=== PATIENT | male | born 1965 | race Caucasian/White ===

== ENCOUNTER 2024-10-24 12:16 | Inpatient (IN) | payer MEDICAID ==
[~2024-10-24] VITALS: Ht 175.3 cm; Wt 121.2 kg
--- NOTE | 2024-10-24 13:03 | ED.PDOC ---
History of Present Illness HPI Comments 59 y/o M presents with c/o open wound to his medial-arch area of his left-foot, today. Patient reports on coming to the ED after contact and consulting with his orthopedist, Dr. Preciado, regarding wound worsening, earlier, today. He comments on initial onset of symptoms on 09/20/24 after noticing a "scab" with "pus" emanating from area, while taking a shower. Patient then reports on being seen and cleared for close monitoring by his orthopedist the next day after "the skin peeled off" when he attempted to pick at it. Patient reports no fever, chills, nausea, vomiting, or other associated symptoms or modifiers at this time. Chief Complaint: Lower Extremity Time Seen by MD: 12:30 Reviewed Notes: Nurses Notes, Medications, Allergies Information Source: Patient Mode of Arrival: Ambulatory Severity: Moderate Timing: Days Duration: Since onset Prehospital treatment: None Past Medical History PAST MEDICAL HISTORY: Anxiety, Asthma, Depression, DM (type II w/neuropathy), HTN Surgical History: Tonsillectomy Surgical History (Other): catether ablation for afflutter on 08/19/24 Family History Family History: Unknown Social History Smoker: Non-Smoker Alcohol: Denies ETOH Use Drugs: Denies Drug Use Lives In: Home Constitutional: denies: chills, diaphoresis, fatigue, fever, malaise, sweats, weakness, others EENTM: denies: blurred vision, double vision, ear bleeding, ear discharge, ear drainage, ear pain, ear ringing, eye pain, eye redness, hearing loss, mouth pain, mouth swelling, nasal discharge, nose bleeding, nose congestion, nose pain, photophobia, tearing, throat pain, throat swelling, voice changes, others Respiratory: denies: cough, hemoptysis, orthopnea, SOB at rest, shortness of breath, SOB with excertion, stridor, wheezing, others Cardiovascular: denies: chest pain, dizzy spells, diaphoresis, Dyspnea on exertion, edema, irregular heart beat, left arm pain, lightheadedness, palpitations, PND, syncope, others Gastrointestinal: denies: abdomen distended, abdominal pain, blood streaked bowels, constipated, diarrhea, dysphagia, difficulty swallowing, hematemesis, melena, nausea, poor appetite, poor fluid intake, rectal bleeding, rectal pain, vomiting, others Genitourinary: denies: burning, dysuria, flank pain, frequency, hematuria, incontinence, penile discharge, penile sore, pain, testicle pain, testicle swelling, urgency, others Neurological: denies: dizziness, fainting, headache, left sided numbness, left sided weakness, numbness, paresthesia, pre-existing deficit, right sided numbness, right sided weakness, seizure, speech problems, tingling, tremors, weakness, others Musculoskeletal: denies: back pain, gout, joint pain, joint swelling, muscle pain, muscle stiffness, neck pain, others Integumetry: reports: wounds (left-foot); denies: bruises, change in color, change in hair/nails, dryness, laceration, lesions, lumps, rash, others Allergic/Immunocompromised: denies: Difficulty Healing, Frequent Infections, Hives, Itching, others Hematologic/Lymphatic: denies: anemia, blood clots, easy bleeding, easy bruising, swollen glands, others Endocrine: denies: excessive hunger, excessive sweating, excessive thirst, excessive urination, flushing, intolerance to cold, intolerance to heat, unexplained weight gain, unexplained weight loss, others Psychiatric: denies: anxiety, bipolar disorder, depression, hopeless, panic disorder, schizophrenia, sleepless, suicidal, others All Other Systems: Reviewed and Negative (negative unless otherwise stated above or in HPI) Physical Exam General Appearance: Moderate Distress, Normal HEENT: Normal ENT Inspection, Pharynx Normal, TMs Normal Neck: Full Range of Motion, Non-Tender, Normal, Normal Inspection Respiratory: Chest Non-Tender, Lungs Clear, No Accessory Muscle Use, No Respiratory Distress, Normal Breath Sounds Cardiovascular: No Edema, No JVD, No Murmur, No Gallop, Normal Peripheral Pulses, Regular Rate/Rhythm Breast Exam: Deferred Gastrointestinal: No Organomegaly, Non Tender, No Pulsatile Mass, Normal Bowel Sounds, Soft Genitalia: Deferred Pelvic: Deferred Rectal: Deferred Extremities: No calf tenderness, Normal capillary refill, No pedal edema Musculoskeletal : Location: Left Extremity Location: Foot Apperance: Limited ROM, Tenderness: Moderate, Other (Obvious wounds with drainage to the foot) Neurologic: Alert, stone cutter II-XII nml as Tested, No Motor Deficits, Normal Affect, Normal Mood, No Sensory Deficits Cerebellar Function: Normal Reflexes: Normal Skin: Dry, Normal Color, Warm Lymphatic: No Adenopathy Was a procedure done? Was a procedure done?: No Differential Dx Considerations may include: diabetic wound, unhealing wound, cellulitis, dermatitis, osteomyelitis X-Ray, Labs, Meds, VS Vital Signs Date Time Temp Pulse Resp B/P (MAP) Pulse Ox O2 Delivery O2 Flow Rate FiO2 10/24/24 13:19 99.8 99 19 159/89 (112) 95 99.8 10/24/24 13:19 99 16 95 Room Air* 0 21 10/24/24 12:40 97.6 113 18 120/66 (84) 95 Lab Test 10/24/24 13:25 10/24/24 12:27 Range/Units White Blood Count 20.9 H 4.4-10.8 10^3/uL Red Blood Count 3.91 L 4.5-5.90 10^6/uL Hemoglobin 12.8 L 13.5-17.5 g/dL Hematocrit 38.0 L 41.0-53.0 % Mean Corpuscular Volume 97.2 80.0-100.0 fL Mean Corpuscular Hemoglobin 32.8 H 28.0-32.0 pg Mean Corpuscular Hemoglobin Concent 33.8 32.0-36.0 g/dL Red Cell Distribution Width 13.4 11.8-14.3 % Platelet Count 39 L 140-450 10^3/uL Mean Platelet Volume 9.9 6.9-10.8 fL Neutrophils (%) (Auto) 37.0-80.0 % Lymphocytes (%) (Auto) 10.0-50.0 % Monocytes (%) (Auto) 0.0-12.0 % Basophils (%) (Auto) 0.0-2.0 % Neutrophils # (Auto) 1.6-8.6 10 ^3/uL Lymphocytes # (Auto) 0.4-5.4 10 ^3/uL Monocytes # (Auto) 0-1.3 10 ^3/uL Differential Total Cells Counted 100.0 100 Neutrophils % (Manual) 78 37.0-80.0 Band Neutrophils % (Manual) 12 Lymphocytes % (Manual) 9 L 10.0-50.0 Monocytes % (Manual) 0 0-12 Eosinophils % (Manual) 1 0-7 Basophils % (Manual) 0 0.0-2.0 Metamyelocytes % (manual) 0 Myelocytes % (Manual) 0 Promyelocytes % (Manual) 0 Blast Cells % (Manual) 0 Reactive Lymphocytes 0 Platelet Estimate Decreased Erythrocyte Sedimentation Rate 90 H 0-20 mm/hr Prothrombin Time 11.2 9.3-11.8 sec Prothrombin Time INR 1.06 0.9-1.15 Activated Partial Thromboplast Time 29.9 24.5-34.5 SEC Sodium Level 128 L 136-145 mmol/L Potassium Level 4.2 3.5-5.1 mmol/L Chloride Level 96 L 98-107 mmol/L Carbon Dioxide Level 21 20-31 mmol/L Anion Gap 11 5-15 Blood Urea Nitrogen 16 9-23 mg/dL Creatinine 1.03 0.700-1.30 mg/dL Glomerular Filtration Rate Calc 83 >90 mL/min BUN/Creatinine Ratio 15.5 10.0-20.0 Serum Glucose 257 H 74-106 mg/dL Calcium Level 9.0 8.7-10.4 mg/dL POC Glucose 262 H 70-106 mg/dl Current Medications Medications (Trade) Dose Ordered Sig/Karina Route Start Time Stop Time Status Last Admin Sodium Chloride 500 ml @ 500 mls/hr Q1H ONCE IV 10/24/24 12:45 10/24/24 13:44 DC 10/24/24 13:16 ORDERING PHYSICIAN: JAMMIE DUENAS MD PROCEDURE(s): LFTCT - CT L FOOT WO CONTRAST Findings/Impression: Limited evaluation given noncontrast technique. There is no evidence of an acute fracture, dislocation, osseous erosions, blastic, or lytic lesions. No radiopaque foreign bodies. Mild to moderate diffuse soft tissue edema. Soft tissue ulcer along the medial hindfoot. No subcutaneous emphysema or focal fluid collections. There is a concern for osteomyelitis. The patient was being started on vancomycin IV piggyback. The CBC shows an elevated white blood cell count of 20.9 The rest of the CBC is within normal limits The chemistry panel shows hyponatremia at 1:28 a.m. The patient was being admitted to the hospitalist The securities dealer will be consulted The patient was being admitted at this time. Images Reviewed?: Images reviewed and evaluated by me Time of 1ST Reevaluation: 13:00 Reevaluation 1ST: Unchanged Patient Education/Counseling: Diagnosis, Treatment, Prognosis Family Education/Counseling: No Family Present Departure 1 Departure Time of Disposition: 15:57 Impression: Primary Impression: Cellulitis of left foot Disposition: ADMITTED INPATIENT Admit to: Med Surg Condition: Fair Critical Care Note Critical Care Time?: No Stability Stability form required: Yes Unstable for transfer: ED Physician Assesment (Clinical assesment) Heart Score Heart Score: Heart Score Response (Comments) Value History N/A 0 EKG N/A 0 Age N/A 0 Risk Factors N/A 0 Troponin N/A 0 Total 0 I personally scribed for JAMMIE DUENAS MD ([email or web address]) on 10/24/24 at 13:03. Electronically submitted by José Luis Soto ([email or web address]). I personally scribed for JAMMIE DUENAS MD ([email or web address]) on 10/24/24 at 14:15. Electronically submitted by José Luis Soto ([email or web address]). JAMMIE DUENAS MD Oct 24, 2024 13:03
[2024-10-24] MEDS: SODIUM CHLORIDE 0.9% 500 ML IV ONE (13:16)
[2024-10-24 13:19] VITALS: PULSE 99; RESP 16; O2SAT 95
--- NOTE | 2024-10-24 13:51 | DVH ---
EXAM: CT CT L FOOT WO CONTRAST INDICATION: infection EXAM DATE: 10/24/2024 01:03 PM COMPARISON: None TECHNIQUE: Multiple axial CT images of the left foot were obtained using bone algorithm. Axial and co biju reformatting was done. Bone and soft tissue windows were reviewed. Radiation Dose Information: CT Dose: CTDI volume is 7.75 mGy. Dose-length product is 185.74 mGy*cm Findings/Impression: Limited evaluation given noncontrast technique. There is no evidence of an acute fracture, dislocation, osseous erosions, blastic, or lytic lesions. No radiopaque foreign bodies. Mild to moderate diffuse soft tissue edema. Soft tissue ulcer along the medial hindfoot. No subcutane ous emphysema or focal fluid collections.
[2024-10-24 14:08] LABS: Potassium 4.2 mmol/L (3.5-5.1)
[2024-10-24 14:09] LABS: Anion Gap 11 (5-15); Carbon Dioxide 21 mmol/L (20-31)
[2024-10-24 14:14] LABS: BUN/Creatinine Ratio 15.5 (10.0-20.0); Blood Urea Nitrogen 16 mg/dL (9-23)
[2024-10-24 14:15] LABS: Chloride 96 mmol/L (98-107); Glucose 257 mg/dL (74-106); Sodium 128 mmol/L (136-145)
[2024-10-24 14:17] LABS: INR 1.06 (0.9-1.15); Partial Thromboplastin Time 29.9 SEC (24.5-34.5); Prothrombin Time 11.2 sec (9.3-11.8)
[2024-10-24 14:21] LABS: Hemoglobin 12.8 g/dL (13.5-17.5); Mean Corpuscular Hemoglobin 32.8 pg (28.0-32.0); Mean Corpuscular Hgb Conc. 33.8 g/dL (32.0-36.0); Mean Corpuscular Volume 97.2 fL (80.0-100.0); Platelet Count (auto) 39 10^3/uL (140-450); Red Blood Cells 3.91 10^6/uL (4.5-5.90); Red Cell Distribution Width 13.4 % (11.8-14.3); White Blood Cell 20.9 10^3/uL (4.4-10.8)
[2024-10-24 14:26] LABS: Basophils % (manual) 0 (0.0-2.0); Blast Cells 0; Metamyelocytes % 0; Monocytes % (manual) 0 (0-12); Myelocytes % 0; Promyelocytes % 0; Reactive Lymphocytes 0
[2024-10-24 14:45] LABS: Erythrocyte Sedimentation Rate 90 mm/hr (0-20)
[2024-10-24 15:29] LABS: Band Neutrophils % (manual) 12; Eosinophils % (manual) 1 (0-7); Lymphocytes % (manual) 9 (10.0-50.0); Platelet Estimate Decreased
[2024-10-24] MEDS: VANCOMYCIN 1GM/250ML KIT 250 ML IV ONE (17:21)
[2024-10-24] MEDS ORDERED: VANCOMYCIN PER PHARMACY 0 MG IV SCH (22:15)
[2024-10-24] MEDS ORDERED: DEXTROSE (50%) 50ML SYRG IV PRN (22:30)
[2024-10-24] MEDS: INSULIN LANTUS (GLARGINE) 1 /0.01ml (100units/ml) SC SCH (22:41)
[2024-10-24] MEDS: VANCOMYCIN 1GM/250mL NS or D5W KIT IV ONE (22:50)
[2024-10-25] VITALS (11 sets, daily range): BP systolic 130–160; BP diastolic 58–79; PULSE 76–92; RESP 15–52; TEMP 97.6–100; O2SAT 95–100
--- NOTE | 2024-10-25 00:26 | DVH ---
CHEST RADIOGRAPH Indication: PREOP Technique: Single frontal view of the chest was obtained Comparison: None FINDINGS: Lines and Tubes: None There are no infiltrates or effusions. There is loss of volume in the right lung base due to the dome of the right hemidiaphragm by the liver. There does appear to be cardiomegaly. Cardiac consult omar sanders. . IMPRESSION: 1. Cardiomegaly 1.
[2024-10-25] MEDS: ACETAMINOPHEN 325 MG TAB PO PRN (02:01)
[2024-10-25] MEDS: SODIUM CHLORIDE 0.9% 1,000 ML IV SCH (02:02)
[2024-10-25] MEDS: PIPERACILLIN-TAZO 4.5GM 100 ML IV SCH ×2 (02:02→07:41)
--- NOTE | 2024-10-25 04:48 | DVHHPRES ---
History of Present Illness Resident Creating Document: STEVE POSADA RESIDENT Reason for Visit: diabetic foot History of Present Illness 59-year-old male presents with an open wound on the medial arch of his left foot. He reports that symptoms began on 09/20/24 when he noticed a scab with pus while taking a shower. The following day, he was evaluated and cleared for close monitoring by mixer attendant Dr Preciado. However, today, he reports worsening of the wound, prompting him to consult Dr. Preciado, who advised him to seek care in the ED. He denies fever, chills, nausea, vomiting, or other associated symptoms. Patient states that his hba1c was about 15 but he was not advised to start insulin Past Medical History Anxiety, asthma, depression, diabetes mellitus type II with neuropathy, hypertension Surgical History Tonsillectomy, catheter ablation for atrial flutter Medications Lisinopril 30 mg, Jardiance 10 mg, furosemide 40 mg, amlodipine 10 mg Social History Smoker: No, Alcohol: Denies use, Drugs: Denies use, Lives: At home Review of Systems Constitutional: No: Fever, Chills, Sweats, Weakness, Malaise, Other Eyes: No: Pain, Vision change, Conjunctivae inflammation, Eyelid inflammation, Other, Redness ENT: No: Ear pain, Ear discharge, Nose pain, Nose discharge, Nose congestion, Mouth pain, Mouth swelling, Throat pain, Throat swelling, Other Gastrointestinal: No: Nausea, Vomiting, Abdominal Pain, Diarrhea, Constipation, Melena, Hematochezia, Other Genitourinary: No Dysuria, No Frequency, No Incontinence, No Hematuria, No Retention, No Other Musculoskeletal: foot pain; No: other, neck pain, shoulder pain, arm pain, back pain, hand pain, leg pain Skin: No: Rash, Lesions, Jaundice, Bruising, Other Neurological: No: Weakness, Numbness, Incoordination, Change in speech, Confusion, Seizures, Other Allergies: Coded Allergies: NO KNOWN ALLERGIES (Unverified , 10/24/24) Medications Current Medications Medications Dose Ordered Sig/Karina Route Start Time Stop Time Status Last Admin Dose Admin Piperacillin Sod/ Tazobactam Sod 100 ml @ 200 mls/hr Q6HR IV 10/25/24 00:00 10/25/24 02:02 200 MLS/HR Vancomycin HCl 0 ml @ 0 mls/hr UD IV 10/24/24 22:15 UNV Insulin Glargine 30 units HS SC 10/24/24 22:15 10/24/24 22:41 30 UNITS Diagnostic Test (Pha) 1 strip ACHS 10/25/24 07:00 Insulin Human Regular HS SC 10/25/24 22:00 Insulin Human Regular AC SC 10/25/24 07:00 Dextrose 50 ml UD PRN IV 10/24/24 22:30 Sodium Chloride 1,000 ml @ 100 mls/hr Q10H IV 10/24/24 23:15 10/25/24 02:02 100 MLS/HR Acetaminophen 650 mg Q4HP PRN PO 10/25/24 01:45 10/25/24 02:01 650 MG Exam Vital Signs Vital Signs Date Time Temp Pulse Resp B/P (MAP) Pulse Ox O2 Delivery O2 Flow Rate FiO2 10/25/24 03:01 99.1 10/25/24 01:23 92 18 160/79 (106) 95 10/25/24 00:59 Room Air* 0 21 General Appearance: Alert, Oriented X3 HEENT: Atraumatic, PERRLA Respiratory: Clear to auscultation, Normal air movement Cardiovascular: Regular rate, Normal S1 Abdominal: Normal bowel sounds, Soft Extremities: No clubbing, No cyanosis, Other (necrosis ulcer in the sole of the foot ) Labs/Xrays Labs Test 10/24/24 23:15 10/24/24 22:35 10/24/24 13:25 Range/Units Lactic Acid Level 1.7 0.4-2.0 mmol/L POC Glucose 224 H 70-106 mg/dl White Blood Count 20.9 H 4.4-10.8 10^3/uL Red Blood Count 3.91 L 4.5-5.90 10^6/uL Hemoglobin 12.8 L 13.5-17.5 g/dL Hematocrit 38.0 L 41.0-53.0 % Mean Corpuscular Volume 97.2 80.0-100.0 fL Mean Corpuscular Hemoglobin 32.8 H 28.0-32.0 pg Mean Corpuscular Hemoglobin Concent 33.8 32.0-36.0 g/dL Red Cell Distribution Width 13.4 11.8-14.3 % Platelet Count 39 L 140-450 10^3/uL Mean Platelet Volume 9.9 6.9-10.8 fL Neutrophils (%) (Auto) 37.0-80.0 % Lymphocytes (%) (Auto) 10.0-50.0 % Monocytes (%) (Auto) 0.0-12.0 % Basophils (%) (Auto) 0.0-2.0 % Neutrophils # (Auto) 1.6-8.6 10 ^3/uL Lymphocytes # (Auto) 0.4-5.4 10 ^3/uL Monocytes # (Auto) 0-1.3 10 ^3/uL Differential Total Cells Counted 100.0 100 Neutrophils % (Manual) 78 37.0-80.0 Band Neutrophils % (Manual) 12 Lymphocytes % (Manual) 9 L 10.0-50.0 Monocytes % (Manual) 0 0-12 Eosinophils % (Manual) 1 0-7 Basophils % (Manual) 0 0.0-2.0 Metamyelocytes % (manual) 0 Myelocytes % (Manual) 0 Promyelocytes % (Manual) 0 Blast Cells % (Manual) 0 Reactive Lymphocytes 0 Platelet Estimate Decreased Erythrocyte Sedimentation Rate 90 H 0-20 mm/hr Prothrombin Time 11.2 9.3-11.8 sec Prothrombin Time INR 1.06 0.9-1.15 Activated Partial Thromboplast Time 29.9 24.5-34.5 SEC Sodium Level 128 L 136-145 mmol/L Potassium Level 4.2 3.5-5.1 mmol/L Chloride Level 96 L 98-107 mmol/L Carbon Dioxide Level 21 20-31 mmol/L Anion Gap 11 5-15 Blood Urea Nitrogen 16 9-23 mg/dL Creatinine 1.03 0.700-1.30 mg/dL Glomerular Filtration Rate Calc 83 >90 mL/min BUN/Creatinine Ratio 15.5 10.0-20.0 Serum Glucose 257 H 74-106 mg/dL Hemoglobin A1c 12.4 H <5.7 % A1C Calcium Level 9.0 8.7-10.4 mg/dL Assessment/Plan Assessment/Plan Imaging CT Left Foot (Non-Contrast): No evidence of acute fracture, dislocation, osseous erosions, radiopaque foreign bodies, mild to moderate diffuse soft tissue edema, soft tissue ulcer along the medial hindfoot, no subcutaneous emphysema, no focal fluid collections Assessment and Plan 59-year-old male with diabetes mellitus type II with neuropathy, hypertension, history of atrial flutter ablation, presenting with a worsening medial arch foot ulcer with leukocytosis, hyperglycemia, and soft tissue edema on imaging #Sepsis due to possible ostemyelitis #Diabetic foot #Uncontrolled diabetes #H/o atrial flutter - s/p ablation #Hypertension Admit Review Assistant consult Foot MRI to rule out osteo Zosyn + vanco IV NS 100cc/h Lantus 30 ui Moderate slidign scale Lisinopril 40 mg PO Case discussed with Dr Luna Plan discussed with: Patient, Other (rn) My Orders Orders - STEVE POSADA RESIDENT Procedure Category Date Status Time Admit ADMIT 10/24/24 Transmitted 22:03 Piperacillin-Tazo PHA 10/25/24 In Process 4.5gm (Zosyn 4.5gm/100 00:00 Vancomycin Per PHA 10/24/24 Pending Pharmacy 22:15 Consistent DIET 10/25/24 Transmitted Carb(Ccho)Diabetes Breakfast Npo After Midnight DIET 10/25/24 Transmitted Breakfast Mri L Foot Wo Contrast MRI 10/24/24 Logged 22:03 Insulin Lantus PHA 10/24/24 In Process (Glargine) (Lantus) 22:15 Glucose Blood PHA 10/25/24 In Process (Accu-Chek Comfort 07:00 Insulin R (Human) PHA 10/25/24 In Process (Insulin R) 22:00 Insulin R (Human) PHA 10/25/24 In Process (Insulin R) 07:00 Dextrose 50% Syringe PHA 10/24/24 In Process 22:30 Blood Culture VARSHA 10/24/24 In Process 22:21 Sodium Chloride 0.9% PHA 10/24/24 In Process 23:15 Electrocardigram EKG 10/24/24 Logged 23:09 Chest Xray 1 View XY 10/24/24 Resulted 23:09 Lt Low Ext Art Duplex US 10/25/24 Logged 01:02 * Wound Consult CONS 10/25/24 Transmitted Acetaminophen Tablet PHA 10/25/24 In Process (Tylenol Tablet) 01:45 Echo 2d Mode Cardiac US 10/25/24 Logged DOP 01:42 Complete Blood Count LAB 10/25/24 Logged 04:02 Comprehensive LAB 10/25/24 Logged Metabolic Panel 04:02 Date of Service: Oct 24, 2024 Billing Provider: LISSA LUNA MD Common Visit Codes: [id number] INP/OBS CARE (HIGH) STEVE POSADA RESIDENT Oct 25, 2024 04:48 LISSA LUNA MD Oct 25, 2024 09:30
[2024-10-25] MEDS: InsuLIN REG 1unit/0.01ml Soln (100units/ml) SC SCH ×2 (06:42→22:58)
[2024-10-25] MEDS: LISINOPRIL 20 MG TAB PO SCH (06:46)
[2024-10-25] MEDS: ACCU-CHEK COMFORT CURVE STRIP VI SCH (06:47)
--- NOTE | 2024-10-25 08:51 | DVH ---
BILATERAL Lower Extremity Arterial Duplex Date: 10/25/2024 07:19 AM Clinical History: PAD arterial doppler left ext lower Comparison: None Technique: Duplex Doppler evaluation including color Doppler and spectral/pulsed waveform analysis of the lower extremity arteries was performed. Finding: LEFT: Peak systolic velocities are as follows: GUNNER'S MATE M 130 cm/s Deep femoral 64 cm/s SFA proximal 121 cm/s SFA mid-portion 161 cm/s SFA distal 138 cm/s Popliteal 133 cm/s Posterior tibial 160 cm/s Anterior tibial 145 cm/s Dorsalis pedis 193 cm/s The waveforms are monophasic in the left posterior tibial artery, dorsalis pedis artery, anterior tib ial artery. REFERENCE VALUES, [facility]) vascular Imaging Lab Criteria: Peak systolic velocity ranges (in cm/sec) are as follows: <150 cm/s - <20 % stenosis 150-200 cm/s - 20-49% stenosis 200-300 cm/s - 50-75% stenosis >300 cm/s -> 75% stenosis IMPRESSION: Approximately 20-49% stenosis of the left dorsalis pedis artery. Peripheral vascular disease in the left posterior tibial artery, left dorsalis pedis artery and anter ior tibial artery.
[2024-10-25 10:05] LABS: Alanine Aminotransferase 10 U/L (7-40); Alkaline Phosphatase 97 U/L (46-116); Anion Gap 7 (5-15); BUN/Creatinine Ratio 11.7 (10.0-20.0); Blood Urea Nitrogen 12 mg/dL (9-23); Calcium 8.8 mg/dL (8.7-10.4); Carbon Dioxide 27 mmol/L (20-31); Potassium 3.6 mmol/L (3.5-5.1)
[2024-10-25 10:06] LABS: Albumin 3.4 g/dL (3.2-4.8); Bilirubin, Total 0.4 mg/dL (0.2-1.0)
[2024-10-25 10:07] LABS: Total Protein 6.4 g/dL (5.7-8.2)
[2024-10-25 10:09] LABS: Eosinophils # (auto) 0.1 10 ^3/uL (0-0.8); Mean Corpuscular Volume 97.6 fL (80.0-100.0); Monocytes # (auto) 1.6 10 ^3/uL (0-1.3)
[2024-10-25 10:11] LABS: Basophils # (auto) 0.1 10 ^3/uL (0-0.2); Basophils % (auto) 0.3 % (0.0-2.0); Eosinophils % (auto) 0.7 % (0.0-7.0); Hematocrit 35.6 % (41.0-53.0); Mean Corpuscular Hemoglobin 32.9 pg (28.0-32.0); Mean Corpuscular Hgb Conc. 33.7 g/dL (32.0-36.0); Neutrophils # (auto) 14.2 10 ^3/uL (1.6-8.6); Red Blood Cells 3.64 10^6/uL (4.5-5.90); Red Cell Distribution Width 13.5 % (11.8-14.3)
[2024-10-25 10:33] LABS: Aspartate Aminotransferase 12 U/L (13-40); Chloride 98 mmol/L (98-107); Glucose 172 mg/dL (74-106); Sodium 132 mmol/L (136-145)
[2024-10-25] MEDS ORDERED: FURO40TA4 (10:42)
[2024-10-25] MEDS ORDERED: AMLO1TAB23 PO (10:42)
[2024-10-25] MEDS ORDERED: LISI30TA8 PO (10:42)
[2024-10-25] MEDS ORDERED: EMPA1TAB PO (10:42)
--- NOTE | 2024-10-25 10:43 | DVH ---
EXAM: MRI MRI L FOOT WO CONTRAST HISTORY: rule out osteo COMPARISON: CT CT L FOOT WO CONTRAST on DOS: 10/24/24 TECHNIQUE: Multiplanar, multisequence MRI of the left foot was performed. FINDINGS: Large soft tissue defect on the medial- plantar aspect of the hindfoot and midfoot involving the skin and subcutaneous tissues extending to the underlying plantar musculature with abnormal signal within the muscles reflecting reactive edema/ myositis. No drainable fluid collection noted. The visualize d osseous structures demonstrate normal cortical and bone marrow signal intensity without evidence of fracture, trabecular bony injury, or dislocation. Hallux sesamoid complex is intact. 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 Mild degenerative changes of tarsal joints noted. The Lisfranc ligament is intact. There is mild fluid distention of the flexor and peroneal tendon sheaths reflecting tenosynovitis wit h no evidence of tendinosis or tendon tear. The partially visualized plantar fascia is intact. There is no evidence of intermetatarsal bursitis or Mi's neuroma. IMPRESSION: 1. Large soft tissue defect on the medial -plantar aspect of hindfoot/midfoot with underlying myositi s but no drainable fluid collection or evidence of osteomyelitis at this time.
[2024-10-25 12:04] LABS: Platelet Count (auto) 190 10^3/uL (140-450)
[2024-10-25 12:05] LABS: Platelet Estimate Adequate
--- NOTE | 2024-10-25 13:00 | DVHINCON2 ---
Date Seen: Oct 25, 2024 Reason for Consultation Left foot wound History of Present Illness 59-year-old male presents with an open wound on the medial arch of his left foot. He reports that symptoms began on 09/20/24 when he noticed a scab with pus while taking a shower. The following day, he was evaluated and cleared for close monitoring by blasting coal miner Dr Rainey. However, today, he reports worsening of the wound, prompting him to consult Dr. Rainey, who advised him to seek care in the ED. He denies fever, chills, nausea, vomiting, or other associated symptoms. Patient states that his hba1c was about 15 but he was not advised to start insulin Past Medical History See H&P Past Surgical History See H&P Family History: Patient reports no known family medical history. Allergies: Coded Allergies: NO KNOWN ALLERGIES (Unverified , 10/24/24) Home Meds Reported Medications Amlodipine Besylate (Amlodipine Besylate) 10 Mg Tab, 1 TAB PO DAILY 10/25/24 Furosemide (Furosemide) 40 Mg Tab, 1 DAILY 10/25/24 Empagliflozin (Jardiance) 10 Mg Tab, 1 TAB PO DAILY 10/25/24 Lisinopril (Lisinopril) 30 Mg Tab, 1 TAB PO DAILY 10/25/24 Current Medications Current Medications Medications (Trade) Dose Ordered Sig/Karina Route PRN Reason Start Time Stop Time Status Last Admin Piperacillin Sod/ Tazobactam Sod 100 ml @ 200 mls/hr Q6HR IV 10/25/24 00:00 10/25/24 07:02 DC 10/25/24 06:45 Vancomycin HCl 0 ml @ 0 mls/hr UD IV 10/24/24 22:15 Insulin Glargine (Lantus) 30 units HS SC 10/24/24 22:15 10/24/24 22:41 Diagnostic Test (Pha) (Accu-Chek Comfort Curve T) 1 strip ACHS 10/25/24 07:00 10/25/24 11:23 Insulin Human Regular (InsuLIN R) HS SC 10/25/24 22:00 Insulin Human Regular (InsuLIN R) AC SC 10/25/24 07:00 10/25/24 06:42 Dextrose 50 ml UD PRN IV Blood Sugar LESS THAN 60 10/24/24 22:30 Sodium Chloride 1,000 ml @ 100 mls/hr Q10H IV 10/24/24 23:15 10/25/24 02:02 Acetaminophen (Tylenol Tablet) 650 mg Q4HP PRN PO MODERATE PAIN (4-6 PAIN SCALE) 10/25/24 01:45 10/25/24 02:01 Lisinopril (Zestril Tablet) 40 mg DAILY PO 10/25/24 05:00 10/25/24 06:46 Piperacillin Sod/ Tazobactam Sod 100 ml @ 25 mls/hr Q8H IV 10/25/24 08:00 10/25/24 07:41 Vancomycin HCl 250 ml @ 200 mls/hr Q8H IV 10/25/24 14:00 Vital Signs Vital Signs Date Time Temp Pulse Resp B/P (MAP) Pulse Ox O2 Delivery O2 Flow Rate FiO2 10/25/24 09:00 98.2 81 20 139/63 (88) 98 98.2 10/25/24 08:07 Room Air* 0 21 Physical Exam DERMATOLOGIC EXAM: - Skin is dry and cool to the touch dry bilaterally. - Nails 1-5 of the bilateral foot are thickened, discolored, dystrophic, and tender to palpate with subungual debris - Hair loss noted to bilateral feet - left medial foot purulent drainage with erythema and fransico necrosis of tissue VASCULAR EXAM: - DP and PT pulses are palpable bilaterally. - PHOTOCOPYING EQUIPMENT MECHANIC is brisk to all digits. - Feet are cool to touch compared to lower legs bilaterally. NEUROLOGIC EXAM: - Normal light touch sensation to the superficial peroneal, deep peroneal, sural, saphenous, and tibial nerve branches. - Protective sensation is diminished as tested with a 5.07 10g Dix-Florian bilaterally. MUSCULOSKELETAL EXAM: - No gross deformities - Muscle strength is 5/5 and active motion is pain-free and symmetrical bilaterally - No pain or crepitation with passive range of motion bilaterally to all major pedal joints Labs/Diagnostic Data Labs Test 10/25/24 11:07 10/25/24 09:10 10/24/24 23:15 10/24/24 13:25 Range/Units POC Glucose 157 H 70-106 mg/dl White Blood Count 18.0 H 4.4-10.8 10^3/uL Red Blood Count 3.64 L 4.5-5.90 10^6/uL Hemoglobin 12.0 L 13.5-17.5 g/dL Hematocrit 35.6 L 41.0-53.0 % Mean Corpuscular Volume 97.6 80.0-100.0 fL Mean Corpuscular Hemoglobin 32.9 H 28.0-32.0 pg Mean Corpuscular Hemoglobin Concent 33.7 32.0-36.0 g/dL Red Cell Distribution Width 13.5 11.8-14.3 % Platelet Count 190 # 140-450 10^3/uL Mean Platelet Volume 8.3 6.9-10.8 fL Neutrophils (%) (Auto) 79.0 37.0-80.0 % Lymphocytes (%) (Auto) 11.0 10.0-50.0 % Monocytes (%) (Auto) 9.0 0.0-12.0 % Eosinophils (%) (Auto) 0.7 0.0-7.0 % Basophils (%) (Auto) 0.3 0.0-2.0 % Neutrophils # (Auto) 14.2 H 1.6-8.6 10 ^3/uL Lymphocytes # (Auto) 2.0 0.4-5.4 10 ^3/uL Monocytes # (Auto) 1.6 H 0-1.3 10 ^3/uL Eosinophils # (Auto) 0.1 0-0.8 10 ^3/uL Basophils # (Auto) 0.1 0-0.2 10 ^3/uL Nucleated Red Blood Cells 0.0 % Platelet Estimate Adequate Sodium Level 132 L 136-145 mmol/L Potassium Level 3.6 3.5-5.1 mmol/L Chloride Level 98 98-107 mmol/L Carbon Dioxide Level 27 20-31 mmol/L Anion Gap 7 5-15 Blood Urea Nitrogen 12 9-23 mg/dL Creatinine 1.03 0.700-1.30 mg/dL Glomerular Filtration Rate Calc 83 >90 mL/min BUN/Creatinine Ratio 11.7 10.0-20.0 Serum Glucose 172 H 74-106 mg/dL Calcium Level 8.8 8.7-10.4 mg/dL Total Bilirubin 0.4 0.2-1.0 mg/dL Aspartate Amino Transferase (AST) 12 L 13-40 U/L Alanine Aminotransferase (ALT) 10 7-40 U/L Alkaline Phosphatase 97 46-116 U/L Total Protein 6.4 5.7-8.2 g/dL Albumin 3.4 3.2-4.8 g/dL Lactic Acid Level 1.7 0.4-2.0 mmol/L Differential Total Cells Counted 100.0 100 Neutrophils % (Manual) 78 37.0-80.0 Band Neutrophils % (Manual) 12 Lymphocytes % (Manual) 9 L 10.0-50.0 Monocytes % (Manual) 0 0-12 Eosinophils % (Manual) 1 0-7 Basophils % (Manual) 0 0.0-2.0 Metamyelocytes % (manual) 0 Myelocytes % (Manual) 0 Promyelocytes % (Manual) 0 Blast Cells % (Manual) 0 Reactive Lymphocytes 0 Erythrocyte Sedimentation Rate 90 H 0-20 mm/hr Prothrombin Time 11.2 9.3-11.8 sec Prothrombin Time INR 1.06 0.9-1.15 Activated Partial Thromboplast Time 29.9 24.5-34.5 SEC Hemoglobin A1c 12.4 H <5.7 % A1C Problems(with codes): (1) Gas gangrene of foot (2) Necrotizing fasciitis of ankle and foot (3) Abscess of foot (4) Cellulitis of foot (5) Cellulitis of left foot Plan/Recommendation ASSESSMENT: Patient is a [age] year old seen on the floor for a worsening ulcer PLAN: - The patients chart was reviewed, clinical findings were discussed with the patient, the etiologies of the conditions were discussed in detail, and a treatm ent plan was agreed to at this time, with both oral and written instructions provided. - reviewed advanced imaging - discussed plan is to perform an incision and drainage - patient has been NPO at midnight - take him to the OR today - we will get cultures in the OR - can weightbear as tolerated in postoperative shoe All questions were answered and concerns addressed to the patient's satisfaction. The patient was given the phone number to the clinic and was told how to make contact with the clinic should any concerns or questions arise. Patient understands that if any questions or concerns arise prior to the next appointment, we should be contacted immediately. FOLLOW-UP: Continue to follow while inpatient Plan discussed with: Patient Date of Service: Oct 25, 2024 Billing Provider: FIDENCIO RAINEY DPM Common Visit Codes: CONSULT ONLY Consultation Codes: [id number] CONSULT <80MIN FIDENCIO RAINEY DPM Oct 25, 2024 13:00
[2024-10-25] MEDS ORDERED: MIDAZOLAM HCL 2MG/2ML 2ml VIAL (1mg/ml) ONE (13:11)
[2024-10-25] MEDS ORDERED: PROPOFOL 10 MG/ML 20 ML IV ONE (13:11)
[2024-10-25] MEDS ORDERED: DexAMETHasone SOD PHOS 10MG/1ML VIAL INJ ONE (13:11)
[2024-10-25] MEDS ORDERED: fentaNYL CITRATE 100 MCG/2 ML VL ONE (13:11)
[2024-10-25] MEDS: BUPIVACAINE 0.5% P/F INJ 10 ML VIAL ONE (13:21)
--- NOTE | 2024-10-25 13:36 | DVHOP2 ---
Operative Report - 2 Report Details Date: 10/25/24 Preop Diagnosis: 1. Left foot abscess 2. Left foot necrotizing fasciitis 3. Left foot gangrene 4. Left foot cellulitis Postop Diagnosis: Same as preop Surgeon: Fidencio Rainey MD Anesthesiologist: See anesthesia Anesthesia: Mac Consent: The patient was informed of the risks and benefits of the procedure. These include but are not limited to complications of anesthesia, postoperative infection, incomplete relief of symptoms, recurrence of symptoms, damage to blood vessels, nerves and tendons, deep venous thrombosis, pulmonary embolism and possible need for repeat surgery in the future. Complications: None Estimated Blood Loss: Minimal Fluids: See anesthesia Findings: Consistent with diagnosis Indications for Surgery: Worsening left foot wound Name of Procedure Performed 1. Left foot I&D to bone (19600) Procedure Details Procedure Details: PRE-PROCEDURE INFORMATION: In the pre-op holding area, the extremity to be operated on was clearly marked and the patient verified correct laterality of the marking. The patient was transferred to the OR table and placed in a supine position. A timeout was performed in which identification of the correct patient, procedure, location, and materials was done. The left foot and leg were prepped and draped in normal sterile fashion. DESCRIPTION OF PROCEDURE: Attention was directed to the left where area of fluctuance was noted. An incision was made over this area and was deepened through blunt dissection. The incision was deepened to the level of abscess and bone. Care was taken to the dissection to avoid any neurovascular and tendinous structures. The incision was deepened to the bone, and the abscess appeared to be purulent fluid consistent with pus. The cortices of the bone was then removed with Morales an all necrotic tissue. After the abscess was drained, the area was irrigated with 3 L normal saline using cysto tubing. Deep cultures were then obtained from the wound. The area was then inspected and any areas of tracking, especially along the tendons were also drained. The wound was packed with Betadine-soaked gauze and we will need to be closed at a later date. POSTOPERATIVE INFORMATION: The patient tolerated the above noted procedure and anesthesia well and was transferred to the PACU with vital signs stable, and vascular status intact with capillary refill intact to all digits. Deep cultures were taken. Necrotizing type infection noted. Patient will need multiple washouts. Patient will have surgery on Monday and for another incision and drainage. Condition Good Disposition Still a Patient FIDENCIO RAINEY DPM Oct 25, 2024 13:36
[2024-10-25] MEDS: VANCOMYCIN 1GM/250ML KIT 250 ML IV SCH (14:00)
--- NOTE | 2024-10-25 17:37 | DVHPN2 ---
Subjective 10/25-patient was status post I&D on left foot where found to have abscess purulent drainage and some necrotic tissue. Podiatry plans to take patient again to OR on 08/30. Patient has pain tolerable with p.o. analgesia. We will continue treatment with antibiotic and podiatry following. Reviewed: Care Plan, H&P Changes from previous H/P or p: No Changes General: Per HPI Eyes: No Pain, No Vision change, No Conjunctivae inflammation, No Eyelid inflammation, No Other, No Redness ENT: No Ear pain, No Ear discharge, No Nose pain, No Nose discharge, No Nose congestion, No Mouth pain, No Mouth swelling, No Throat pain, No Throat swelling, No Other Gastrointestinal: No Nausea, No Vomiting, No Abdominal Pain, No Diarrhea, No Constipation, No Melena, No Hematochezia, No Other Genitourinary: No Dysuria, No Frequency, No Incontinence, No Hematuria, No Retention, No Other Musculoskeletal: No other, No neck pain, No shoulder pain, No arm pain, No back pain, No hand pain, No leg pain; foot pain Skin: No Rash, No Lesions, No Jaundice, No Bruising, No Other Objective Vitals Vital Signs Date Time Temp Pulse Resp B/P (MAP) Pulse Ox O2 Delivery O2 Flow Rate FiO2 10/25/24 16:42 99.1 84 20 132/64 (86) 99 99.1 10/25/24 13:41 Mask 9.0 100 Intake/Output Intake and Output 10/25/24 07:00 Intake Total 500 ml Balance 500 ml Intake Oral 0 ml IV Total 500 ml Exam GEN: Healthy appearing, well-developed, NAD. HEENT: NC/AT; MMM. CV: RRR, no m/r/g. LUNGS: CTAB, no w/r/c. ABD: Soft, NT/ND, NBS, no masses or organomegaly. EXT: Left foot wrapped in gauze with Betadine staining status post I&D on 10/25 with podiatry. Neurovascularly intact. NEURO: Ambulating with no limitations. No focal deficits. Medications Current Medications Medications Dose Ordered Sig/Karina Route Start Time Stop Time Status Last Admin Dose Admin Vancomycin HCl 0 ml @ 0 mls/hr UD IV 10/24/24 22:15 Insulin Glargine 30 units HS SC 10/24/24 22:15 10/24/24 22:41 30 UNITS Diagnostic Test (Pha) 1 strip ACHS 10/25/24 07:00 10/25/24 17:09 1 STRIP Insulin Human Regular HS SC 10/25/24 22:00 Insulin Human Regular AC SC 10/25/24 07:00 10/25/24 17:26 12 UNITS Dextrose 50 ml UD PRN IV 10/24/24 22:30 Sodium Chloride 1,000 ml @ 100 mls/hr Q10H IV 10/24/24 23:15 10/25/24 02:02 100 MLS/HR Acetaminophen 650 mg Q4HP PRN PO 10/25/24 01:45 10/25/24 15:35 650 MG Lisinopril 40 mg DAILY PO 10/25/24 05:00 10/25/24 06:46 40 MG Piperacillin Sod/ Tazobactam Sod 100 ml @ 25 mls/hr Q8H IV 10/25/24 08:00 10/25/24 17:25 25 MLS/HR Vancomycin HCl 250 ml @ 200 mls/hr Q8H IV 10/25/24 14:00 10/25/24 14:00 200 MLS/HR Laboratory Results Laboratory Tests 10/25/24 09:10 Chemistry Test 10/25/24 09:10 Albumin 3.4 g/dL (3.2-4.8) Calcium Level 8.8 mg/dL (8.7-10.4) Total Protein 6.4 g/dL (5.7-8.2) LFT Test 10/25/24 09:10 Alanine Aminotransferase (ALT) 10 U/L (7-40) Alkaline Phosphatase 97 U/L (46-116) Aspartate Amino Transferase (AST) 12 U/L (13-40) L Total Bilirubin 0.4 mg/dL (0.2-1.0) Labs and/or images reviewed: Labs reviewed by me, Image(s) reviewed by me Assessment/Plan Assessment/Plan 10/25-patient was status post I&D on left foot where found to have abscess purulent drainage and some necrotic tissue. Podiatry plans to take patient again to OR on 08/30. Patient has pain tolerable with p.o. analgesia. We will continue treatment with antibiotic and podiatry following. #Left foot cellulitis with abscess and necrotic tissue #Sepsis due to cellulitis left foot- vancomycin cefepime Flagyl (prior vancomycin and Zosyn) # osteomyelitis ruled out #Diabetic foot infection #Uncontrolled diabetes - Lantus 30 units with meal moderate sliding scale insulin #H/o atrial flutter - s/p ablation #Hypertension -lisinopril home dose Plan discussed with: Patient Date of Service: Oct 25, 2024 Billing Provider: SHELDON VELASCO MD Common Visit Codes: [id number] INP/OBS CARE(HIGH) SHELDON VELASCO MD Oct 25, 2024 17:37
--- NOTE | 2024-10-25 19:12 | DVHSR ---
APPROVED REPORT EXAM: Two-dimensional and M-mode echocardiogram with Doppler and color Doppler. Blood Pressure: 132/82 mmHg INDICATION rule out chf RISK FACTORS Height: 5'9, Weight: 264 DIMENSIONS LVDd5.0 (3.8-5.7cm)LA (2D)4.8 (1.9-4.0cm)Aortic Root3.3 (2.0-3.7cm) LVDs4.1 (2.5-4.0cm)LA (MM) (1.9-4.0cm)Aortic Cusp Exc1.3 (1.5-2.0cm) EF (%) 45.0 (55-70%)Rt. Atrium3.2 (1.9-4.0cm)Asc. Aorta3.1 cm IVSd1.6 (0.7-1.1cm)RV (D) (1.8-2.4cm) PWd1.1 (0.7-1.1cm) Mitral Valve MitralMitral Stenosis E wave0.85m/sMV Mean GR.mmHg A wave0.56m/sMV Peak GR.93mmHg E/A ratio1.52D MVAcm2 DECEL [id number] 1/2 Timems Aortic Valve Aortic ValveAortic Stenosis V10.96m/Devyn Mean GR.4mmHg V21.14m/Devyn Peak GR.5mmHg LVOT Diameter2.4 (1.8-2.4cm)Doppler AVA3.81cm2 Pulmonic Valve V20.95m/s Tricuspid Valve TR Velocity2.78m/s [id number] Other Information Quality : Technically LimitedRhythm : Technically limited study due to patient position.body habitus. Conclusion Technically good study. Sinus rhythm. Concentric LVH with left atrial enlargement. Valves are normal. EF of 45% with global hypokinesis. Normal right ventricular function. Doppler is unremarkable. No pericardial effusion masses or vegetations.
[2024-10-25] MEDS: metroNIDAZOLE 500MG/100ML 100 ML IV SCH (22:59)
[2024-10-26] VITALS (8 sets, daily range): BP systolic 142–176; BP diastolic 73–90; PULSE 74–80; RESP 18–20; TEMP 97.8–98.4; O2SAT 95–97
[2024-10-26] MEDS: CEFEPIME 1GM/ 50ML 50 ML IV SCH (00:08)
[2024-10-26] MEDS: hydrALAZINE HCL 20 MG/ML VL IV PRN (00:52)
[2024-10-26] MEDS ORDERED: hydrALAZINE HCL 20 MG/ML VL IV ONE (06:00)
--- NOTE | 2024-10-26 18:45 | DVHPN2 ---
Subjective Update 10/26 10/25-patient was status post I&D on left foot where found to have abscess purulent drainage and some necrotic tissue. Podiatry plans to take patient again to OR on 08/30. Patient has pain tolerable with p.o. analgesia. We will continue treatment with antibiotic and podiatry following. 10/26 patient doing well, pain controlled with p.o. p.r.n. meds. Continue to monitor. NPO midnight tomorrow night for procedure with podiatry on Monday10/28/2024 Reviewed: Care Plan, H&P Changes from previous H/P or p: No Changes General: Per HPI Eyes: No Pain, No Vision change, No Conjunctivae inflammation, No Eyelid inflammation, No Other, No Redness ENT: No Ear pain, No Ear discharge, No Nose pain, No Nose discharge, No Nose congestion, No Mouth pain, No Mouth swelling, No Throat pain, No Throat swelling, No Other Gastrointestinal: No Nausea, No Vomiting, No Abdominal Pain, No Diarrhea, No Constipation, No Melena, No Hematochezia, No Other Genitourinary: No Dysuria, No Frequency, No Incontinence, No Hematuria, No Retention, No Other Musculoskeletal: No other, No neck pain, No shoulder pain, No arm pain, No back pain, No hand pain, No leg pain; foot pain Skin: No Rash, No Lesions, No Jaundice, No Bruising, No Other Objective Vitals Vital Signs Date Time Temp Pulse Resp B/P (MAP) Pulse Ox O2 Delivery O2 Flow Rate FiO2 10/26/24 16:33 98.0 76 19 142/73 (96) 96 98.0 10/26/24 08:00 Room Air* 0 21 Intake/Output Intake and Output 10/26/24 07:00 Intake Total 3200 ml Output Total 3150 ml Balance 50 ml Intake Oral 1720 ml IV Total 1480 ml Output Urine Total 3150 ml # Voids 3 Exam GEN: Healthy appearing, well-developed, NAD. HEENT: NC/AT; MMM. CV: RRR, no m/r/g. LUNGS: CTAB, no w/r/c. ABD: Soft, NT/ND, NBS, no masses or organomegaly. EXT: Left foot wrapped in gauze with Betadine staining status post I&D on 10/25 with podiatry. Neurovascularly intact. NEURO: Ambulating with no limitations. No focal deficits. Medications Current Medications Medications Dose Ordered Sig/Karina Route Start Time Stop Time Status Last Admin Dose Admin Vancomycin HCl 0 ml @ 0 mls/hr UD IV 10/24/24 22:15 Insulin Glargine 30 units HS SC 10/24/24 22:15 10/25/24 22:54 30 UNITS Diagnostic Test (Pha) 1 strip ACHS 10/25/24 07:00 10/26/24 16:53 1 STRIP Insulin Human Regular HS SC 10/25/24 22:00 10/25/24 22:58 15 UNITS Insulin Human Regular AC SC 10/25/24 07:00 10/26/24 16:53 12 UNITS Dextrose 50 ml UD PRN IV 10/24/24 22:30 Sodium Chloride 1,000 ml @ 100 mls/hr Q10H IV 10/24/24 23:15 10/26/24 16:55 100 MLS/HR Acetaminophen 650 mg Q4HP PRN PO 10/25/24 01:45 10/25/24 15:35 650 MG Lisinopril 40 mg DAILY PO 10/25/24 05:00 10/26/24 09:19 40 MG Vancomycin HCl 250 ml @ 200 mls/hr Q8H IV 10/25/24 14:00 10/26/24 15:40 200 MLS/HR Cefepime HCl 50 ml @ 12.5 mls/hr Q8HR IV 10/25/24 22:00 10/26/24 13:36 12.5 MLS/HR Metronidazole 100 ml @ 100 mls/hr Q8HR IV 10/25/24 22:00 10/26/24 13:32 100 MLS/HR Acetaminophen/ Hydrocodone Bitart 1 tab Q4HP PRN PO 10/25/24 17:45 Hydralazine HCl 15 mg Q6HPRN PRN IV 10/26/24 00:30 10/26/24 00:52 15 MG Laboratory Results Laboratory Tests 10/25/24 09:10 Microbiology Microbiology Date/Time Source Procedure Growth Status 10/25/24 13:30 Foot Left Gram Stain - Final Resulted 10/25/24 13:30 Foot Left Anaerobic Culture Pending Resulted 10/25/24 13:30 Foot Left Aerobic Culture - Preliminary Resulted 10/24/24 23:40 Blood Blood Culture - Preliminary NO GROWTH AFTER 24 HOURS OF INCUBATION. Resulted Labs and/or images reviewed: Labs reviewed by me, Image(s) reviewed by me Assessment/Plan Assessment/Plan 10/26 patient doing well, pain controlled with p.o. p.r.n. meds. Continue to monitor. NPO midnight tomorrow night for procedure with podiatry on Monday10/28/2024 #Left foot cellulitis with abscess and necrotic tissue #Sepsis due to cellulitis left foot- vancomycin cefepime Flagyl (prior vancomycin and Zosyn) # osteomyelitis ruled out #Diabetic foot infection #Uncontrolled diabetes - Lantus 30 units with meal moderate sliding scale insulin #H/o atrial flutter - s/p ablation #Hypertension -lisinopril home dose Plan discussed with: Patient Date of Service: Oct 26, 2024 Billing Provider: SHELDON VELASCO MD Common Visit Codes: [id number] INP/OBS CARE(HIGH) SHELDON VELASCO MD Oct 26, 2024 18:45
[2024-10-27] VITALS (8 sets, daily range): BP systolic 141–157; BP diastolic 70–90; PULSE 70–89; RESP 16–20; TEMP 97.1–98.8; O2SAT 93–99
[2024-10-27] MEDS: HYDROcodone-ACET 10/325MG TAB PO PRN (06:23)
[2024-10-27 08:33] LABS: Basophils # (auto) 0.1 10 ^3/uL (0-0.2); Eosinophils # (auto) 0.1 10 ^3/uL (0-0.8); Hemoglobin 11.6 g/dL (13.5-17.5); White Blood Cell 14.9 10^3/uL (4.4-10.8)
[2024-10-27 08:35] LABS: Basophils % (auto) 0.7 % (0.0-2.0); Eosinophils % (auto) 0.4 % (0.0-7.0); Hematocrit 35.4 % (41.0-53.0); Lymphocytes # (auto) 2.4 10 ^3/uL (0.4-5.4); Lymphocytes % (auto) 16.2 % (10.0-50.0); Mean Corpuscular Hemoglobin 32.4 pg (28.0-32.0); Mean Corpuscular Hgb Conc. 32.7 g/dL (32.0-36.0); Mean Corpuscular Volume 99.3 fL (80.0-100.0); Monocytes # (auto) 1.2 10 ^3/uL (0-1.3); Monocytes % (auto) 8.3 % (0.0-12.0); Neutrophils # (auto) 11.1 10 ^3/uL (1.6-8.6); Neutrophils % (auto) 74.4 % (37.0-80.0); Nucleated Red Blood Cells % 0.2 %; Platelet Count (auto) 37 10^3/uL (140-450); Red Blood Cells 3.57 10^6/uL (4.5-5.90); Red Cell Distribution Width 13.8 % (11.8-14.3)
[2024-10-27] MEDS ORDERED: DEXTROSE (50%) 50ML SYRG IV PRN (09:00)
[2024-10-27 09:53] LABS: Platelet Estimate Decreased
[2024-10-27] MEDS: InsuLIN REG 1unit/0.01ml Soln (100units/ml) SC SCH (11:57)
[2024-10-27] MEDS: ACCU-CHEK COMFORT CURVE STRIP VI SCH (11:57)
[2024-10-27] MEDS: FUROSEMIDE 20 MG TAB PO ONE (17:49)
--- NOTE | 2024-10-27 19:21 | DVHPN2 ---
Subjective Update 10/26 10/25-patient was status post I&D on left foot where found to have abscess purulent drainage and some necrotic tissue. Podiatry plans to take patient again to OR on 08/30. Patient has pain tolerable with p.o. analgesia. We will continue treatment with antibiotic and podiatry following. 10/26 patient doing well, pain controlled with p.o. p.r.n. meds. Continue to monitor. NPO midnight tomorrow night for procedure with podiatry on Monday10/28/202410/27 - patient was stable, pain is controlled with p.o. analgesia. Tolerating p.o., p.o. NPO midnight. Ambulated twice to bathroom today. Continuing some home medications. Reviewed: Care Plan, H&P Changes from previous H/P or p: No Changes General: Per HPI Eyes: No Pain, No Vision change, No Conjunctivae inflammation, No Eyelid inflammation, No Other, No Redness ENT: No Ear pain, No Ear discharge, No Nose pain, No Nose discharge, No Nose congestion, No Mouth pain, No Mouth swelling, No Throat pain, No Throat swelling, No Other Gastrointestinal: No Nausea, No Vomiting, No Abdominal Pain, No Diarrhea, No Constipation, No Melena, No Hematochezia, No Other Genitourinary: No Dysuria, No Frequency, No Incontinence, No Hematuria, No Retention, No Other Musculoskeletal: No other, No neck pain, No shoulder pain, No arm pain, No back pain, No hand pain, No leg pain; foot pain Skin: No Rash, No Lesions, No Jaundice, No Bruising, No Other Objective Vitals Vital Signs Date Time Temp Pulse Resp B/P (MAP) Pulse Ox O2 Delivery O2 Flow Rate FiO2 10/27/24 17:49 164/94 10/27/24 17:00 98.0 70 20 95 98.0 10/27/24 07:58 Room Air* 0 21 Intake/Output Intake and Output 10/27/24 07:00 Intake Total 3100 ml Output Total 3000 ml Balance 100 ml Intake Oral 2250 ml IV Total 850 ml Output Urine Total 3000 ml # Bowel Movements 1 Exam GEN: Healthy appearing, well-developed, NAD. HEENT: NC/AT; MMM. CV: RRR, no m/r/g. LUNGS: CTAB, no w/r/c. ABD: Soft, NT/ND, NBS, no masses or organomegaly. EXT: Left foot wrapped in gauze with Betadine staining status post I&D on 10/25 with podiatry. Neurovascularly intact. NEURO: Ambulating with no limitations. No focal deficits. Medications Current Medications Medications Dose Ordered Sig/Karina Route Start Time Stop Time Status Last Admin Dose Admin Vancomycin HCl 0 ml @ 0 mls/hr UD IV 10/24/24 22:15 Sodium Chloride 1,000 ml @ 100 mls/hr Q10H IV 10/24/24 23:15 10/26/24 16:55 100 MLS/HR Acetaminophen 650 mg Q4HP PRN PO 10/25/24 01:45 10/25/24 15:35 650 MG Lisinopril 40 mg DAILY PO 10/25/24 05:00 10/27/24 10:14 40 MG Vancomycin HCl 250 ml @ 200 mls/hr Q8H IV 10/25/24 14:00 10/27/24 13:35 200 MLS/HR Cefepime HCl 50 ml @ 12.5 mls/hr Q8HR IV 10/25/24 22:00 10/27/24 15:32 12.5 MLS/HR Metronidazole 100 ml @ 100 mls/hr Q8HR IV 10/25/24 22:00 10/27/24 13:35 100 MLS/HR Acetaminophen/ Hydrocodone Bitart 1 tab Q4HP PRN PO 10/25/24 17:45 10/27/24 14:01 1 TAB Hydralazine HCl 15 mg Q6HPRN PRN IV 10/26/24 00:30 10/26/24 00:52 15 MG Insulin Glargine 40 units HS SC 10/27/24 22:00 Diagnostic Test (Pha) 1 strip Q6HR 10/27/24 12:00 10/27/24 17:22 1 STRIP Insulin Human Regular Q6HR SC 10/27/24 12:00 10/27/24 17:21 8 UNITS Dextrose 50 ml UD PRN IV 10/27/24 09:00 Furosemide 40 mg DAILY PO 10/28/24 10:00 Laboratory Results Laboratory Tests 10/25/24 09:10 10/27/24 07:45 Microbiology Microbiology Date/Time Source Procedure Growth Status 10/25/24 13:30 Foot Left Gram Stain - Final Resulted 10/25/24 13:30 Foot Left Anaerobic Culture - Preliminary Resulted 10/25/24 13:30 Aerobic Culture - Final Methicillin Resistant S.aureus Resulted 10/24/24 23:40 Blood Blood Culture - Preliminary NO GROWTH AFTER 48 HOURS OF INCUBATION. Resulted Labs and/or images reviewed: Labs reviewed by me, Image(s) reviewed by me Assessment/Plan Assessment/Plan 10/27 - patient was stable, pain is controlled with p.o. analgesia. Tolerating p.o., p.o. NPO midnight. Ambulated twice to bathroom today. Continuing some home medications. #Left foot cellulitis with abscess and necrotic tissue #Sepsis due to cellulitis left foot- vancomycin cefepime Flagyl (prior vancomycin and Zosyn) # osteomyelitis ruled out #Diabetic foot infection #Uncontrolled diabetes - Lantus 30 units with meal moderate sliding scale insulin #H/o atrial flutter - s/p ablation #Hypertension -lisinopril home dose Diet diabetic DVT prophylaxis-Lovenox GI prophylaxis tolerating diet Med surge Full code Plan discussed with: Patient My Orders Orders - SHELDON VELASCO MD Procedure Category Date Status Time Insulin Lantus PHA 10/27/24 In Process (Glargine) (Lantus) 22:00 Glucose Blood PHA 10/27/24 In Process (Accu-Chek Comfort 12:00 Insulin R (Human) PHA 10/27/24 In Process (Insulin R) 12:00 Dextrose 50% Syringe PHA 10/27/24 In Process 09:00 Furosemide Tablet PHA 10/28/24 In Process (Lasix Tablet) 10:00 Date of Service: Oct 27, 2024 Billing Provider: SHELDON VELASCO MD Common Visit Codes: [id number] INP/OBS CARE(HIGH) SHELDON VELASCO MD Oct 27, 2024 19:21
[2024-10-27] MEDS: INSULIN LANTUS (GLARGINE) 1 /0.01ml (100units/ml) SC SCH (21:50)
[2024-10-28] VITALS (9 sets, daily range): BP systolic 142–160; BP diastolic 66–89; PULSE 75–81; RESP 13–20; TEMP 97.3–98.4; O2SAT 91–98
[2024-10-28 06:05] LABS: Chloride 100 mmol/L (98-107); Potassium 3.9 mmol/L (3.5-5.1); Sodium 133 mmol/L (136-145)
[2024-10-28 06:06] LABS: Anion Gap 8 (5-15); Carbon Dioxide 25 mmol/L (20-31)
[2024-10-28 06:11] LABS: BUN/Creatinine Ratio 10.3 (10.0-20.0); Blood Urea Nitrogen 10 mg/dL (9-23)
[2024-10-28 06:22] LABS: CRP High Sensitivity 6.67 mg/dL (<1.0); Calcium 8.3 mg/dL (8.7-10.4); Glucose 202 mg/dL (74-106)
[2024-10-28 06:28] LABS: Erythrocyte Sedimentation Rate 96 mm/hr (0-20)
[2024-10-28 07:01] LABS: Basophils # (auto) 0.1 10 ^3/uL (0-0.2); Hemoglobin 10.5 g/dL (13.5-17.5); Lymphocytes % (auto) 13.2 % (10.0-50.0); Red Cell Distribution Width 13.9 % (11.8-14.3)
[2024-10-28 07:02] LABS: Basophils % (auto) 0.6 % (0.0-2.0); Eosinophils # (auto) 0.3 10 ^3/uL (0-0.8); Eosinophils % (auto) 1.5 % (0.0-7.0); Hematocrit 31.6 % (41.0-53.0); Lymphocytes # (auto) 2.3 10 ^3/uL (0.4-5.4); Mean Corpuscular Hgb Conc. 33.1 g/dL (32.0-36.0); Mean Corpuscular Volume 99.6 fL (80.0-100.0); Monocytes # (auto) 1.3 10 ^3/uL (0-1.3); Monocytes % (auto) 7.4 % (0.0-12.0); Neutrophils # (auto) 13.4 10 ^3/uL (1.6-8.6); Neutrophils % (auto) 77.3 % (37.0-80.0); Red Blood Cells 3.17 10^6/uL (4.5-5.90); White Blood Cell 17.3 10^3/uL (4.4-10.8)
[2024-10-28 07:27] LABS: Platelet Count (auto) 260 10^3/uL (140-450)
[2024-10-28] MEDS: FUROSEMIDE 40 MG TAB PO SCH (10:00)
[2024-10-28] MEDS ORDERED: PROPOFOL 10 MG/ML 20 ML IV ONE ×2 (10:40→11:47)
[2024-10-28] MEDS ORDERED: LIDOCAINE 1% INJ PF 5ML AMP ONE (10:40)
[2024-10-28] MEDS ORDERED: DexAMETHasone SOD PHOS 10MG/1ML VIAL INJ ONE (10:40)
[2024-10-28] MEDS ORDERED: KETOROLAC TROMETH 30 MG/ML 1ML VIAL ONE (10:40)
[2024-10-28] MEDS ORDERED: GLYCOPYRROLATE 0.2 MG/ML 1ML VIAL ONE ×2 (10:40→11:47)
[2024-10-28] MEDS ORDERED: ONDANSETRON HCL 4 MG/2 ML VIAL ONE ×2 (10:40→11:47)
--- NOTE | 2024-10-28 11:33 | DVHPN2 ---
Subjective 59-year-old male presents with an open wound on the medial arch of his left foot. He reports that symptoms began on 09/20/24 when he noticed a scab with pus while taking a shower. The following day, he was evaluated and cleared for close monitoring by concierge manager Dr Rainey. However, today, he reports worsening of the wound, prompting him to consult Dr. Rainey, who advised him to seek care in the ED. He denies fever, chills, nausea, vomiting, or other associated symptoms. Patient states that his hba1c was about 15 but he was not advised to start insulin Reviewed: Care Plan, H&P Changes from previous H/P or p: No Changes General: Per HPI Eyes: No Pain, No Vision change, No Conjunctivae inflammation, No Eyelid inflammation, No Other, No Redness ENT: No Ear pain, No Ear discharge, No Nose pain, No Nose discharge, No Nose congestion, No Mouth pain, No Mouth swelling, No Throat pain, No Throat swelling, No Other Gastrointestinal: No Nausea, No Vomiting, No Abdominal Pain, No Diarrhea, No Constipation, No Melena, No Hematochezia, No Other Genitourinary: No Dysuria, No Frequency, No Incontinence, No Hematuria, No Retention, No Other Musculoskeletal: No other, No neck pain, No shoulder pain, No arm pain, No back pain, No hand pain, No leg pain; foot pain Skin: No Rash, No Lesions, No Jaundice, No Bruising, No Other Objective Vitals Vital Signs Date Time Temp Pulse Resp B/P (MAP) Pulse Ox O2 Delivery O2 Flow Rate FiO2 10/28/24 09:00 98.4 76 17 149/66 (93) 93 98.4 10/27/24 19:49 Room Air* 0 21 Intake/Output Intake and Output 10/28/24 07:00 Intake Total 2507.5 ml Output Total 2650 ml Balance -142.5 ml Intake Oral 1220 ml IV Total 1287.5 ml Output Urine Total 2650 ml Exam DERMATOLOGIC EXAM: - Skin is dry and cool to the touch dry bilaterally. - Nails 1-5 of the bilateral foot are thickened, discolored, dystrophic, and tender to palpate with subungual debris - Hair loss noted to bilateral feet - left medial foot purulent drainage with erythema and fransico necrosis of tissue VASCULAR EXAM: - DP and PT pulses are palpable bilaterally. - [employer] ADMINISTRATOR is brisk to all digits. - Feet are cool to touch compared to lower legs bilaterally. NEUROLOGIC EXAM: - Normal light touch sensation to the superficial peroneal, deep peroneal, sural, saphenous, and tibial nerve branches. - Protective sensation is diminished as tested with a 5.07 10g [place] bilaterally. MUSCULOSKELETAL EXAM: - No gross deformities - Muscle strength is 5/5 and active motion is pain-free and symmetrical bilaterally - No pain or crepitation with passive range of motion bilaterally to all major pedal joints Medications Current Medications Medications Dose Ordered Sig/Karina Route Start Time Stop Time Status Last Admin Dose Admin Vancomycin HCl 0 ml @ 0 mls/hr UD IV 10/24/24 22:15 Sodium Chloride 1,000 ml @ 100 mls/hr Q10H IV 10/24/24 23:15 10/26/24 16:55 100 MLS/HR Acetaminophen 650 mg Q4HP PRN PO 10/25/24 01:45 10/25/24 15:35 650 MG Lisinopril 40 mg DAILY PO 10/25/24 05:00 10/27/24 10:14 40 MG Vancomycin HCl 250 ml @ 200 mls/hr Q8H IV 10/25/24 14:00 10/28/24 04:57 200 MLS/HR Cefepime HCl 50 ml @ 12.5 mls/hr Q8HR IV 10/25/24 22:00 10/28/24 06:08 12.5 MLS/HR Metronidazole 100 ml @ 100 mls/hr Q8HR IV 10/25/24 22:00 10/28/24 04:57 100 MLS/HR Acetaminophen/ Hydrocodone Bitart 1 tab Q4HP PRN PO 10/25/24 17:45 10/28/24 02:55 1 TAB Hydralazine HCl 15 mg Q6HPRN PRN IV 10/26/24 00:30 10/26/24 00:52 15 MG Insulin Glargine 40 units HS SC 10/27/24 22:00 10/27/24 21:50 40 UNITS Diagnostic Test (Pha) 1 strip Q6HR 10/27/24 12:00 10/28/24 06:06 1 STRIP Insulin Human Regular Q6HR SC 10/27/24 12:00 10/27/24 17:21 8 UNITS Dextrose 50 ml UD PRN IV 10/27/24 09:00 Furosemide 40 mg DAILY PO 10/28/24 10:00 Laboratory Results Laboratory Tests 10/28/24 05:04 Chemistry Test 10/28/24 05:04 Calcium Level 8.3 mg/dL (8.7-10.4) L Microbiology Microbiology Date/Time Source Procedure Growth Status 10/25/24 13:30 Foot Left Gram Stain - Final Resulted 10/25/24 13:30 Foot Left Anaerobic Culture - Preliminary Resulted 10/25/24 13:30 Aerobic Culture - Final Methicillin Resistant S.aureus Resulted 10/24/24 23:40 Blood Blood Culture - Preliminary NO GROWTH AFTER 72 HOURS OF INCUBATION. Resulted Assessment/Plan Assessment/Plan ASSESSMENT: Patient is a [age] year old seen on the floor 3 days s/p from a left foot I&D PLAN: - The patients chart was reviewed, clinical findings were discussed with the patient, the etiologies of the conditions were discussed in detail, and a treatment plan was agreed to at this time, with both oral and written instructions provided. - reviewed advanced imaging - reviewed patient's labs and cultures - discussed plan is to perform an incision and drainage today - patient has been NPO at midnight - take him to the OR today - can weightbear as tolerated in postoperative shoe All questions were answered and concerns addressed to the patient's satisfaction. The patient was given the phone number to the clinic and was told how to make contact with the clinic should any concerns or questions arise. Patient understands that if any questions or concerns arise prior to the next appointment, we should be contacted immediately. FOLLOW-UP: Continue to follow while inpatient Plan discussed with: Patient Problem List: (1) Diabetic foot ulcer (2) Diabetic neuropathy (3) Cellulitis of left foot (4) Cellulitis of foot (5) Abscess of foot (6) Gas gangrene of foot (7) Necrotizing fasciitis of ankle and foot Date of Service: Oct 28, 2024 Billing Provider: FIDENCIO RAINEY DPM Common Visit Codes: [id number] INP/OBS CARE(MOD) FIDENCIO RAINEY DPM Oct 28, 2024 11:33
[2024-10-28] MEDS ORDERED: MIDAZOLAM HCL 2MG/2ML 2ml VIAL (1mg/ml) ONE (11:47)
[2024-10-28] MEDS ORDERED: KETAMINE 50mg/ML 10ml Vial 10 ML ONE (11:49)
--- NOTE | 2024-10-28 12:17 | DVHOP2 ---
Operative Report - 2 Report Details Date: 10/28/24 Preop Diagnosis: 1. Left foot abscess 2. Left foot necrotizing fasciitis 3. Left foot gangrene 4. Left foot cellulitis Postop Diagnosis: Same as preop Surgeon: Fidencio Rainey MD Anesthesiologist: See anesthesia Anesthesia: Mac Consent: The patient was informed of the risks and benefits of the procedure. These include but are not limited to complications of anesthesia, postoperative infection, incomplete relief of symptoms, recurrence of symptoms, damage to blood vessels, nerves and tendons, deep venous thrombosis, pulmonary embolism and possible need for repeat surgery in the future. Complications: None Estimated Blood Loss: Minimal Fluids: See anesthesia Findings: Consistent with the diagnosis Indications for Surgery: Worsening left foot wound Name of Procedure Performed 1. Left foot I&D to bone (15877) Procedure Details Procedure Details: PRE-PROCEDURE INFORMATION: In the pre-op holding area, the extremity to be operated on was clearly marked and the patient verified correct laterality of the marking. The patient was transferred to the OR table and placed in a supine position. A timeout was performed in which identification of the correct patient, procedure, location, and materials was done. The left foot and leg were prepped and draped in normal sterile fashion. DESCRIPTION OF PROCEDURE: Attention was directed to the left where previous incision was made area of fluctuance was noted. An incision was made over this area and was deepened through blunt dissection. The incision was deepened to the level of abscess and bone. Care was taken to the dissection to avoid any neurovascular and tendinous structures. The incision was deepened to the bone, and the abscess appeared to be purulent fluid consistent with pus. The cortices of the bone was then removed with [place] an all necrotic tissue. After the abscess was drained, the area was irrigated with 3 L normal saline using cysto tubing. Deep cultures were then obtained from the wound. The area was then inspected and any areas of tracking, especially along the tendons were also drained. The wound was packed with Betadine-soaked gauze and we will need to be closed at a later date. POSTOPERATIVE INFORMATION: The patient tolerated the above noted procedure and anesthesia well and was transferred to the PACU with vital signs stable, and vascular status intact with capillary refill intact to all digits. Patient will return to the floor continue IV antibiotics. Patient will have another debridement performed on Monday. Patient likely need extensive period of time with the wound VAC. continue IV antibiotics. Condition Good Disposition Still a Patient FIDENCIO RAINEY DPM Oct 28, 2024 12:17
[2024-10-28] MEDS ORDERED: HYDROmorphone HCL 2 MG/ML VL/or syr IV PRN (12:30)
[2024-10-28] MEDS: BUPIVACAINE 0.5% P/F INJ 10 ML VIAL ONE (12:58)
--- NOTE | 2024-10-28 14:48 | DVHPN2 ---
Subjective Update 10/28 10/25-patient was status post I&D on left foot where found to have abscess purulent drainage and some necrotic tissue. Podiatry plans to take patient again to OR on 08/30. Patient has pain tolerable with p.o. analgesia. We will continue treatment with antibiotic and podiatry following. 10/26 patient doing well, pain controlled with p.o. p.r.n. meds. Continue to monitor. NPO midnight tomorrow night for procedure with podiatry on Monday10/28/202410/27 - patient was stable, pain is controlled with p.o. analgesia. Tolerating p.o., p.o. NPO midnight. Ambulated twice to bathroom today. Continuing some home medications. 10/28-patient is doing well, he is status post OR again sign. He continues to have pain in left lower extremity at interventions site. Complaining of pain after OR, we will notify nurse. We will continue p.r.n. analgesia and treatment plan Reviewed: Care Plan, H&P Changes from previous H/P or p: No Changes General: Per HPI Eyes: No Pain, No Vision change, No Conjunctivae inflammation, No Eyelid inflammation, No Other, No Redness ENT: No Ear pain, No Ear discharge, No Nose pain, No Nose discharge, No Nose congestion, No Mouth pain, No Mouth swelling, No Throat pain, No Throat swelling, No Other Gastrointestinal: No Nausea, No Vomiting, No Abdominal Pain, No Diarrhea, No Constipation, No Melena, No Hematochezia, No Other Genitourinary: No Dysuria, No Frequency, No Incontinence, No Hematuria, No Retention, No Other Musculoskeletal: No other, No neck pain, No shoulder pain, No arm pain, No back pain, No hand pain, No leg pain; foot pain Skin: No Rash, No Lesions, No Jaundice, No Bruising, No Other Objective Vitals Vital Signs Date Time Temp Pulse Resp B/P (MAP) Pulse Ox O2 Delivery O2 Flow Rate FiO2 10/28/24 13:00 98.2 81 17 159/86 (110) 91 98.2 10/28/24 12:15 Room Air 0 10/28/24 12:15 95 Intake/Output Intake and Output 10/28/24 07:00 Intake Total 2507.5 ml Output Total 2650 ml Balance -142.5 ml Intake Oral 1220 ml IV Total 1287.5 ml Output Urine Total 2650 ml Exam GEN: Healthy appearing, well-developed, NAD. HEENT: NC/AT; MMM. CV: RRR, no m/r/g. LUNGS: CTAB, no w/r/c. ABD: Soft, NT/ND, NBS, no masses or organomegaly. EXT: Left foot wrapped in gauze with Betadine staining status post I&D on 10/25 with podiatry. Neurovascularly intact. NEURO: Ambulating with no limitations. No focal deficits. Medications Current Medications Medications Dose Ordered Sig/Karina Route Start Time Stop Time Status Last Admin Dose Admin Vancomycin HCl 0 ml @ 0 mls/hr UD IV 10/24/24 22:15 Sodium Chloride 1,000 ml @ 100 mls/hr Q10H IV 10/24/24 23:15 10/28/24 07:15 100 MLS/HR Acetaminophen 650 mg Q4HP PRN PO 10/25/24 01:45 10/25/24 15:35 650 MG Lisinopril 40 mg DAILY PO 10/25/24 05:00 10/27/24 10:14 40 MG Vancomycin HCl 250 ml @ 200 mls/hr Q8H IV 10/25/24 14:00 Hold 10/28/24 04:57 200 MLS/HR Cefepime HCl 50 ml @ 12.5 mls/hr Q8HR IV 10/25/24 22:00 10/28/24 13:49 12.5 MLS/HR Metronidazole 100 ml @ 100 mls/hr Q8HR IV 10/25/24 22:00 10/28/24 13:49 100 MLS/HR Acetaminophen/ Hydrocodone Bitart 1 tab Q4HP PRN PO 10/25/24 17:45 10/28/24 13:49 1 TAB Hydralazine HCl 15 mg Q6HPRN PRN IV 10/26/24 00:30 10/26/24 00:52 15 MG Insulin Glargine 40 units HS SC 10/27/24 22:00 10/27/24 21:50 40 UNITS Diagnostic Test (Pha) 1 strip Q6HR 10/27/24 12:00 10/28/24 06:06 1 STRIP Insulin Human Regular Q6HR SC 10/27/24 12:00 10/27/24 17:21 8 UNITS Dextrose 50 ml UD PRN IV 10/27/24 09:00 Furosemide 40 mg DAILY PO 10/28/24 10:00 Laboratory Results Laboratory Tests 10/28/24 05:04 Chemistry Test 10/28/24 05:04 Calcium Level 8.3 mg/dL (8.7-10.4) L Microbiology Microbiology Date/Time Source Procedure Growth Status 10/25/24 13:30 Foot Left Gram Stain - Final Resulted 10/25/24 13:30 Foot Left Anaerobic Culture - Preliminary Resulted 10/25/24 13:30 Aerobic Culture - Final Methicillin Resistant S.aureus Resulted 10/24/24 23:40 Blood Blood Culture - Preliminary NO GROWTH AFTER 72 HOURS OF INCUBATION. Resulted Labs and/or images reviewed: Labs reviewed by me, Image(s) reviewed by me Assessment/Plan Assessment/Plan 10/28-patient is doing well, he is status post OR again sign. He continues to have pain in left lower extremity at interventions site. Complaining of pain after OR, we will notify nurse. We will continue p.r.n. analgesia and treatment plan #Left foot cellulitis with abscess and necrotic tissue - SP OR 10/25 and 10/28 and next for 10/30. #Sepsis due to cellulitis left foot- vancomycin cefepime Flagyl (prior vancomycin and Zosyn) # osteomyelitis ruled out #Diabetic foot infection #Uncontrolled diabetes - Lantus 30 units with meal moderate sliding scale insulin #H/o atrial flutter - s/p ablation #Hypertension -lisinopril home dose Diet diabetic DVT prophylaxis-Lovenox GI prophylaxis tolerating diet Med surge Full code Plan discussed with: Patient My Orders Orders - SHELDON VELASCO MD Procedure Category Date Status Time Furosemide Tablet PHA 10/28/24 In Process (Lasix Tablet) 10:00 Date of Service: Oct 28, 2024 Billing Provider: SHELDON VELASCO MD Common Visit Codes: [id number] INP/OBS CARE(HIGH) SHELDON VELASCO MD Oct 28, 2024 14:48
[2024-10-28] MEDS: VANCOMYCIN 1GM/250ML KIT 250 ML IV SCH (16:00)
[2024-10-29] VITALS (7 sets, daily range): BP systolic 131–153; BP diastolic 68–80; PULSE 66–82; RESP 14–18; TEMP 98–100.1; O2SAT 94–96
[2024-10-29] MEDS: VANCOMYCIN HCL 1000 MG VL ONE (09:33)
--- NOTE | 2024-10-29 14:37 | DVHPN2 ---
Subjective 59-year-old male presents with an open wound on the medial arch of his left foot. He reports that symptoms began on 09/20/24 when he noticed a scab with pus while taking a shower. The following day, he was evaluated and cleared for close monitoring by camp boss Dr Rainey. However, today, he reports worsening of the wound, prompting him to consult Dr. Rainey, who advised him to seek care in the ED. He denies fever, chills, nausea, vomiting, or other associated symptoms. Patient states that his hba1c was about 15 but he was not advised to start insulin Reviewed: Care Plan, H&P Changes from previous H/P or p: No Changes General: Per HPI Eyes: No Pain, No Vision change, No Conjunctivae inflammation, No Eyelid inflammation, No Other, No Redness ENT: No Ear pain, No Ear discharge, No Nose pain, No Nose discharge, No Nose congestion, No Mouth pain, No Mouth swelling, No Throat pain, No Throat swelling, No Other Gastrointestinal: No Nausea, No Vomiting, No Abdominal Pain, No Diarrhea, No Constipation, No Melena, No Hematochezia, No Other Genitourinary: No Dysuria, No Frequency, No Incontinence, No Hematuria, No Retention, No Other Musculoskeletal: No other, No neck pain, No shoulder pain, No arm pain, No back pain, No hand pain, No leg pain; foot pain Skin: No Rash, No Lesions, No Jaundice, No Bruising, No Other Objective Vitals Vital Signs Date Time Temp Pulse Resp B/P (MAP) Pulse Ox O2 Delivery O2 Flow Rate FiO2 10/29/24 13:00 98.3 75 18 153/80 (104) 94 98.3 10/29/24 07:30 Room Air* 0 21 Intake/Output Intake and Output 10/29/24 07:00 Intake Total 1700 ml Output Total 2400 ml Balance -700 ml Intake Oral 1050 ml IV Total 650 ml Output Urine Total 2400 ml # Voids 2 Exam DERMATOLOGIC EXAM: - Skin is dry and cool to the touch dry bilaterally. - Nails 1-5 of the bilateral foot are thickened, discolored, dystrophic, and tender to palpate with subungual debris - Hair loss noted to bilateral feet - left medial foot purulent drainage with erythema and fransico necrosis of tissue VASCULAR EXAM: - DP and PT pulses are palpable bilaterally. 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 - Feet are cool to touch compared to lower legs bilaterally. NEUROLOGIC EXAM: - Normal light touch sensation to the superficial peroneal, deep peroneal, sural, saphenous, and tibial nerve branches. - Protective sensation is diminished as tested with a 5.07 10g [place]ian bilaterally. MUSCULOSKELETAL EXAM: - No gross deformities - Muscle strength is 5/5 and active motion is pain-free and symmetrical bilaterally - No pain or crepitation with passive range of motion bilaterally to all major pedal joints Medications Current Medications Medications Dose Ordered Sig/Karina Route Start Time Stop Time Status Last Admin Dose Admin Vancomycin HCl 0 ml @ 0 mls/hr UD IV 10/24/24 22:15 Sodium Chloride 1,000 ml @ 100 mls/hr Q10H IV 10/24/24 23:15 10/28/24 17:15 100 MLS/HR Acetaminophen 650 mg Q4HP PRN PO 10/25/24 01:45 10/25/24 15:35 650 MG Lisinopril 40 mg DAILY PO 10/25/24 05:00 10/29/24 09:35 40 MG Cefepime HCl 50 ml @ 12.5 mls/hr Q8HR IV 10/25/24 22:00 10/29/24 05:04 12.5 MLS/HR Metronidazole 100 ml @ 100 mls/hr Q8HR IV 10/25/24 22:00 10/29/24 05:04 100 MLS/HR Acetaminophen/ Hydrocodone Bitart 1 tab Q4HP PRN PO 10/25/24 17:45 10/29/24 09:55 1 TAB Hydralazine HCl 15 mg Q6HPRN PRN IV 10/26/24 00:30 10/26/24 00:52 15 MG Insulin Glargine 40 units HS SC 10/27/24 22:00 10/28/24 21:08 40 UNITS Diagnostic Test (Pha) 1 strip Q6HR 10/27/24 12:00 10/29/24 12:00 1 STRIP Insulin Human Regular Q6HR SC 10/27/24 12:00 10/29/24 12:58 4 UNITS Dextrose 50 ml UD PRN IV 10/27/24 09:00 Furosemide 40 mg DAILY PO 10/28/24 10:00 10/29/24 09:35 40 MG Vancomycin HCl 250 ml @ 250 mls/hr Q8H IV 10/28/24 16:00 10/29/24 09:34 250 MLS/HR Laboratory Results Laboratory Tests 10/28/24 05:04 Microbiology Microbiology Date/Time Source Procedure Growth Status 10/25/24 13:30 Foot Left Gram Stain - Final Complete 10/25/24 13:30 Anaerobic Culture - Final Prevotella denticola Complete 10/25/24 13:30 Aerobic Culture - Final Methicillin Resistant S.aureus Complete 10/24/24 23:40 Blood Blood Culture - Preliminary NO GROWTH AFTER 72 HOURS OF INCUBATION. Resulted Assessment/Plan Assessment/Plan ASSESSMENT: Patient is a [age] year old seen on the floor 1 days s/p from a left foot I&D PLAN: - The patients chart was reviewed, clinical findings were discussed with the patient, the etiologies of the conditions were discussed in detail, and a treatment plan was agreed to at this time, with both oral and written instructions provided. - reviewed advanced imaging - reviewed patient's labs and cultures - discussed plan is to perform an incision and drainage tomorrow in the need of placement of wound VAC - patient has been NPO at midnight - take him to the OR today - can weightbear as tolerated in postoperative shoe - we will have to request for wound VAC - have wound VAC placed after surgery All questions were answered and concerns addressed to the patient's satisfaction. The patient was given the phone number to the clinic and was told how to make contact with the clinic should any concerns or questions arise. Patient understands that if any questions or concerns arise prior to the next appointment, we should be contacted immediately. FOLLOW-UP: Continue to follow while inpatient Plan discussed with: Patient Problem List: (1) Cellulitis of left foot (2) Cellulitis of foot (3) Abscess of foot (4) Gas gangrene of foot (5) Necrotizing fasciitis of ankle and foot (6) Diabetic neuropathy (7) Diabetic foot ulcer Date of Service: Oct 29, 2024 Billing Provider: FIDENCIO RAINEY DPM Common Visit Codes: [id number] INP/OBS CARE(HIGH) FIDENCIO RAINEY DPM Oct 29, 2024 14:37
--- NOTE | 2024-10-29 16:16 | DVHPN2 ---
Subjective Update 10/29 10/25-patient was status post I&D on left foot where found to have abscess purulent drainage and some necrotic tissue. Podiatry plans to take patient again to OR on 08/30. Patient has pain tolerable with p.o. analgesia. We will continue treatment with antibiotic and podiatry following. 10/26 patient doing well, pain controlled with p.o. p.r.n. meds. Continue to monitor. NPO midnight tomorrow night for procedure with podiatry on Monday10/28/202410/27 - patient was stable, pain is controlled with p.o. analgesia. Tolerating p.o., p.o. NPO midnight. Ambulated twice to bathroom today. Continuing some home medications. 10/28-patient is doing well, he is status post OR again sign. He continues to have pain in left lower extremity at interventions site. Complaining of pain after OR, we will notify nurse. We will continue p.r.n. analgesia and treatment plan 10/29-doing well NPO midnight for OR tomorrow with Podiatry again. Continuing pain control. Pain is tolerable. Current p.r.n. analgesia Reviewed: Care Plan, H&P Changes from previous H/P or p: No Changes General: Per HPI Eyes: No Pain, No Vision change, No Conjunctivae inflammation, No Eyelid inflammation, No Other, No Redness ENT: No Ear pain, No Ear discharge, No Nose pain, No Nose discharge, No Nose congestion, No Mouth pain, No Mouth swelling, No Throat pain, No Throat swelling, No Other Gastrointestinal: No Nausea, No Vomiting, No Abdominal Pain, No Diarrhea, No Constipation, No Melena, No Hematochezia, No Other Genitourinary: No Dysuria, No Frequency, No Incontinence, No Hematuria, No Retention, No Other Musculoskeletal: No other, No neck pain, No shoulder pain, No arm pain, No back pain, No hand pain, No leg pain; foot pain Skin: No Rash, No Lesions, No Jaundice, No Bruising, No Other Objective Vitals Vital Signs Date Time Temp Pulse Resp B/P (MAP) Pulse Ox O2 Delivery O2 Flow Rate FiO2 10/29/24 13:00 98.3 75 18 153/80 (104) 94 98.3 10/29/24 07:30 Room Air* 0 21 Intake/Output Intake and Output 10/29/24 07:00 Intake Total 1700 ml Output Total 2400 ml Balance -700 ml Intake Oral 1050 ml IV Total 650 ml Output Urine Total 2400 ml # Voids 2 Exam GEN: Healthy appearing, well-developed, NAD. HEENT: NC/AT; MMM. CV: RRR, no m/r/g. LUNGS: CTAB, no w/r/c. ABD: Soft, NT/ND, NBS, no masses or organomegaly. EXT: Left foot wrapped in gauze with Betadine staining status post I&D on 10/25 with podiatry. Neurovascularly intact. NEURO: Ambulating with no limitations. No focal deficits. Medications Current Medications Medications Dose Ordered Sig/Karina Route Start Time Stop Time Status Last Admin Dose Admin Vancomycin HCl 0 ml @ 0 mls/hr UD IV 10/24/24 22:15 Sodium Chloride 1,000 ml @ 100 mls/hr Q10H IV 10/24/24 23:15 10/29/24 15:18 100 MLS/HR Acetaminophen 650 mg Q4HP PRN PO 10/25/24 01:45 10/25/24 15:35 650 MG Lisinopril 40 mg DAILY PO 10/25/24 05:00 10/29/24 09:35 40 MG Cefepime HCl 50 ml @ 12.5 mls/hr Q8HR IV 10/25/24 22:00 10/29/24 15:18 12.5 MLS/HR Metronidazole 100 ml @ 100 mls/hr Q8HR IV 10/25/24 22:00 10/29/24 15:18 100 MLS/HR Acetaminophen/ Hydrocodone Bitart 1 tab Q4HP PRN PO 10/25/24 17:45 10/29/24 09:55 1 TAB Hydralazine HCl 15 mg Q6HPRN PRN IV 10/26/24 00:30 10/26/24 00:52 15 MG Insulin Glargine 40 units HS SC 10/27/24 22:00 10/28/24 21:08 40 UNITS Diagnostic Test (Pha) 1 strip Q6HR 10/27/24 12:00 10/29/24 12:00 1 STRIP Insulin Human Regular Q6HR SC 10/27/24 12:00 10/29/24 12:58 4 UNITS Dextrose 50 ml UD PRN IV 10/27/24 09:00 Furosemide 40 mg DAILY PO 10/28/24 10:00 10/29/24 09:35 40 MG Vancomycin HCl 250 ml @ 250 mls/hr Q8H IV 10/28/24 16:00 10/29/24 09:34 250 MLS/HR Laboratory Results Laboratory Tests 10/28/24 05:04 Microbiology Microbiology Date/Time Source Procedure Growth Status 10/25/24 13:30 Foot Left Gram Stain - Final Complete 10/25/24 13:30 Anaerobic Culture - Final Prevotella denticola Complete 10/25/24 13:30 Aerobic Culture - Final Methicillin Resistant S.aureus Complete 10/24/24 23:40 Blood Blood Culture - Preliminary NO GROWTH AFTER 72 HOURS OF INCUBATION. Resulted Labs and/or images reviewed: Labs reviewed by me, Image(s) reviewed by me Assessment/Plan Assessment/Plan 10/29-doing well NPO midnight for OR tomorrow with Podiatry again. Continuing pain control. Pain is tolerable. Current p.r.n. analgesia #Left foot cellulitis with abscess and necrotic tissue - SP OR 10/25 and 10/28 and next for 10/30. #Sepsis due to cellulitis left foot- vancomycin cefepime Flagyl (prior vancomycin and Zosyn) # osteomyelitis ruled out #Diabetic foot infection #Uncontrolled diabetes - Lantus 30 units with meal moderate sliding scale insulin #H/o atrial flutter - s/p ablation #Hypertension -lisinopril home dose Diet diabetic DVT prophylaxis-Lovenox GI prophylaxis tolerating diet Med surge Full code Plan discussed with: Patient Date of Service: Oct 29, 2024 Billing Provider: SHELDON VELASCO MD Common Visit Codes: [id number] INP/OBS CARE(HIGH) SHELDON VELASCO MD Oct 29, 2024 16:16
[2024-10-30] VITALS (7 sets, daily range): BP systolic 105–172; BP diastolic 64–78; PULSE 61–77; RESP 16–20; TEMP 97.9–99.1; O2SAT 95–97
[2024-10-30 07:02] LABS: Basophils # (auto) 0.2 10 ^3/uL (0-0.2); Basophils % (auto) 1.4 % (0.0-2.0); Eosinophils # (auto) 0.3 10 ^3/uL (0-0.8); Eosinophils % (auto) 2.8 % (0.0-7.0); Hematocrit 31.5 % (41.0-53.0); Hemoglobin 10.7 g/dL (13.5-17.5); Lymphocytes # (auto) 1.6 10 ^3/uL (0.4-5.4); Mean Corpuscular Hemoglobin 33.7 pg (28.0-32.0); Mean Corpuscular Hgb Conc. 34.1 g/dL (32.0-36.0); Mean Corpuscular Volume 98.6 fL (80.0-100.0); Monocytes # (auto) 1.2 10 ^3/uL (0-1.3); Neutrophils # (auto) 8.3 10 ^3/uL (1.6-8.6); Neutrophils % (auto) 71.8 % (37.0-80.0); Red Blood Cells 3.19 10^6/uL (4.5-5.90); Red Cell Distribution Width 13.7 % (11.8-14.3); White Blood Cell 11.6 10^3/uL (4.4-10.8)
[2024-10-30 07:15] LABS: INR 1.14 (0.9-1.15); Partial Thromboplastin Time 29.6 SEC (24.5-34.5); Prothrombin Time 11.9 sec (9.3-11.8)
[2024-10-30 07:16] LABS: Alkaline Phosphatase 67 U/L (46-116); Anion Gap 6 (5-15); BUN/Creatinine Ratio 9.4 (10.0-20.0); Carbon Dioxide 30 mmol/L (20-31); Potassium 4.3 mmol/L (3.5-5.1); Total Protein 5.9 g/dL (5.7-8.2)
[2024-10-30 07:17] LABS: Alanine Aminotransferase 9 U/L (7-40); Aspartate Aminotransferase 11 U/L (13-40); Bilirubin, Total 0.3 mg/dL (0.2-1.0); Blood Urea Nitrogen 9 mg/dL (9-23); Calcium 8.6 mg/dL (8.7-10.4); Chloride 97 mmol/L (98-107); Glucose 231 mg/dL (74-106); Sodium 133 mmol/L (136-145)
[2024-10-30 07:27] LABS: Platelet Count (auto) 517 10^3/uL (140-450)
[2024-10-30] MEDS: BUPIVACAINE 0.5% MPF INJ 30ML SDV IJ ONE (12:10)
[2024-10-30] MEDS ORDERED: KETOROLAC TROMETH 30 MG/ML 1ML VIAL ONE (12:19)
[2024-10-30] MEDS ORDERED: LIDOCAINE 1% INJ PF 5ML AMP ONE (12:19)
[2024-10-30] MEDS ORDERED: GLYCOPYRROLATE 0.2 MG/ML 1ML VIAL ONE (12:19)
[2024-10-30] MEDS ORDERED: ONDANSETRON HCL 4 MG/2 ML VIAL ONE (12:19)
[2024-10-30] MEDS ORDERED: DexAMETHasone SOD PHOS 10MG/1ML VIAL INJ ONE (12:19)
[2024-10-30] MEDS ORDERED: PROPOFOL 10 MG/ML 20 ML IV ONE ×2 (12:19→12:27)
--- NOTE | 2024-10-30 12:30 | DVHPN2 ---
Subjective 59-year-old male presents with an open wound on the medial arch of his left foot. He reports that symptoms began on 09/20/24 when he noticed a scab with pus while taking a shower. The following day, he was evaluated and cleared for close monitoring by ampoule washing machine operator Dr Rainey. However, today, he reports worsening of the wound, prompting him to consult Dr. Rainey, who advised him to seek care in the ED. He denies fever, chills, nausea, vomiting, or other associated symptoms. Patient states that his hba1c was about 15 but he was not advised to start insulin Reviewed: Care Plan, H&P Changes from previous H/P or p: No Changes General: Per HPI Eyes: No Pain, No Vision change, No Conjunctivae inflammation, No Eyelid inflammation, No Other, No Redness ENT: No Ear pain, No Ear discharge, No Nose pain, No Nose discharge, No Nose congestion, No Mouth pain, No Mouth swelling, No Throat pain, No Throat swelling, No Other Gastrointestinal: No Nausea, No Vomiting, No Abdominal Pain, No Diarrhea, No Constipation, No Melena, No Hematochezia, No Other Genitourinary: No Dysuria, No Frequency, No Incontinence, No Hematuria, No Retention, No Other Musculoskeletal: No other, No neck pain, No shoulder pain, No arm pain, No back pain, No hand pain, No leg pain; foot pain Skin: No Rash, No Lesions, No Jaundice, No Bruising, No Other Objective Vitals Vital Signs Date Time Temp Pulse Resp B/P (MAP) Pulse Ox O2 Delivery O2 Flow Rate FiO2 10/30/24 09:25 115/69 10/30/24 09:00 98.6 61 18 96 98.6 10/30/24 07:30 Room Air* 0 21 Intake/Output Intake and Output 10/30/24 07:00 Intake Total 4120 ml Output Total 4550 ml Balance -430 ml Intake Oral 2120 ml IV Total 2000 ml Output Urine Total 4550 ml # Voids 2 Exam DERMATOLOGIC EXAM: - Skin is dry and cool to the touch dry bilaterally. - Nails 1-5 of the bilateral foot are thickened, discolored, dystrophic, and tender to palpate with subungual debris - Hair loss noted to bilateral feet - left medial foot purulent drainage with erythema and fransico necrosis of tissue VASCULAR EXAM: - DP and PT pulses are palpable bilaterally. - SAMPLE TESTER GRINDER is brisk to all digits. - Feet are cool to touch compared to lower legs bilaterally. NEUROLOGIC EXAM: - Normal light touch sensation to the superficial peroneal, deep peroneal, sural, saphenous, and tibial nerve branches. - Protective sensation is diminished as tested with a 5.07 10g [place]-Florian bilaterally. MUSCULOSKELETAL EXAM: - No gross deformities - Muscle strength is 5/5 and active motion is pain-free and symmetrical bilaterally - No pain or crepitation with passive range of motion bilaterally to all major pedal joints Medications Current Medications Medications Dose Ordered Sig/Karina Route Start Time Stop Time Status Last Admin Dose Admin Vancomycin HCl 0 ml @ 0 mls/hr UD IV 10/24/24 22:15 Sodium Chloride 1,000 ml @ 100 mls/hr Q10H IV 10/24/24 23:15 10/29/24 15:18 100 MLS/HR Acetaminophen 650 mg Q4HP PRN PO 10/25/24 01:45 10/25/24 15:35 650 MG Lisinopril 40 mg DAILY PO 10/25/24 05:00 10/30/24 09:24 40 MG Cefepime HCl 50 ml @ 12.5 mls/hr Q8HR IV 10/25/24 22:00 10/30/24 06:18 12.5 MLS/HR Metronidazole 100 ml @ 100 mls/hr Q8HR IV 10/25/24 22:00 10/30/24 06:10 100 MLS/HR Acetaminophen/ Hydrocodone Bitart 1 tab Q4HP PRN PO 10/25/24 17:45 10/30/24 09:24 1 TAB Hydralazine HCl 15 mg Q6HPRN PRN IV 10/26/24 00:30 10/26/24 00:52 15 MG Insulin Glargine 40 units HS SC 10/27/24 22:00 10/29/24 23:14 40 UNITS Diagnostic Test (Pha) 1 strip Q6HR 10/27/24 12:00 10/30/24 06:18 1 STRIP Insulin Human Regular Q6HR SC 10/27/24 12:00 10/30/24 06:28 8 UNITS Dextrose 50 ml UD PRN IV 10/27/24 09:00 Furosemide 40 mg DAILY PO 10/28/24 10:00 10/30/24 09:25 40 MG Vancomycin HCl 250 ml @ 250 mls/hr Q8H IV 10/28/24 16:00 10/30/24 08:58 250 MLS/HR Laboratory Results Laboratory Tests 10/30/24 06:16 Chemistry Test 10/30/24 06:16 Albumin 3.0 g/dL (3.2-4.8) L Calcium Level 8.6 mg/dL (8.7-10.4) L Total Protein 5.9 g/dL (5.7-8.2) Coagulation Test 10/30/24 06:16 Prothrombin Time 11.9 sec (9.3-11.8) H Prothrombin Time INR 1.14 (0.9-1.15) Activated Partial Thromboplast Time 29.6 SEC (24.5-34.5) LFT Test 10/30/24 06:16 Alanine Aminotransferase (ALT) 9 U/L (7-40) Alkaline Phosphatase 67 U/L (46-116) Aspartate Amino Transferase (AST) 11 U/L (13-40) L Total Bilirubin 0.3 mg/dL (0.2-1.0) Microbiology Microbiology Date/Time Source Procedure Growth Status 10/25/24 13:30 Foot Left Gram Stain - Final Complete 10/25/24 13:30 Anaerobic Culture - Final Prevotella denticola Complete 10/25/24 13:30 Aerobic Culture - Final Methicillin Resistant S.aureus Complete 10/24/24 23:40 Blood Blood Culture - Final NO GROWTH AFTER 5 DAYS OF INCUBATION. Complete Assessment/Plan Assessment/Plan ASSESSMENT: Patient is a [age] year old seen on the floor 2 days s/p from a left foot I&D PLAN: - The patients chart was reviewed, clinical findings were discussed with the patient, the etiologies of the conditions were discussed in detail, and a treatment plan was agreed to at this time, with both oral and written instructions provided. - reviewed advanced imaging - reviewed patient's labs and cultures - discussed plan is to perform an incision and drainage tomorrow in the need of placement of wound VAC - patient has been NPO since midnight - take him to the OR today - can weightbear as tolerated in postoperative shoe - we will have to request for wound VAC - have wound VAC placed after surgery All questions were answered and concerns addressed to the patient's satisfaction. The patient was given the phone number to the clinic and was told how to make contact with the clinic should any concerns or questions arise. Patient understands that if any questions or concerns arise prior to the next appointment, we should be contacted immediately. FOLLOW-UP: Continue to follow while inpatient Plan discussed with: Patient My Orders Orders - FIDENCIO RAINEY DPM Procedure Category Date Status Time Npo (Nothing By DIET 10/30/24 Transmitted Mouth) Diet Breakfast Obtain Consent For: ORDERS 10/30/24 Transmitted 06:43 Obtain Consent For BASIL 10/30/24 In Process Anesthesia 06:43 Date of Service: Oct 30, 2024 Billing Provider: FIDENCIO RAINEY DPM Common Visit Codes: [id number] INP/OBS CARE(HIGH) FIDENCIO RAINEY DPM Oct 30, 2024 12:30
--- NOTE | 2024-10-30 12:54 | DVHOP2 ---
Operative Report - 2 Report Details Date: 10/30/24 Preop Diagnosis: 1. Left foot abscess 2. Left foot necrotizing fasciitis 3. Left foot gangrene 4. Left foot cellulitis Postop Diagnosis: Same as preop Surgeon: Fidencio Rainey MD Anesthesiologist: See anesthesia Anesthesia: Mac Consent: The patient was informed of the risks and benefits of the procedure. These include but are not limited to complications of anesthesia, postoperative infection, incomplete relief of symptoms, recurrence of symptoms, damage to blood vessels, nerves and tendons, deep venous thrombosis, pulmonary embolism and possible need for repeat surgery in the future. Complications: None Estimated Blood Loss: Minimal Fluids: See anesthesia Findings: Consistent with the diagnosis Indications for Surgery: Worsening left foot wound Name of Procedure Performed 1. Left foot I&D to bone (18379) Procedure Details Procedure Details: PRE-PROCEDURE INFORMATION: In the pre-op holding area, the extremity to be operated on was clearly marked and the patient verified correct laterality of the marking. The patient was transferred to the OR table and placed in a supine position. A timeout was performed in which identification of the correct patient, procedure, location, and materials was done. The left foot and leg were prepped and draped in normal sterile fashion. DESCRIPTION OF PROCEDURE: Attention was directed to the left where previous incision was made area of fluctuance was noted. An incision was made over this area and was deepened through blunt dissection. The incision was deepened to the level of abscess and bone. Care was taken to the dissection to avoid any neurovascular and tendinous structures. The incision was deepened to the bone, and the abscess appeared to be purulent fluid consistent with pus. The cortices of the bone was then removed with Morales an all necrotic tissue. After the abscess was drained, the area was irrigated with 3 L normal saline using cysto tubing. Deep cultures were then obtained from the wound. The area was then inspected and any areas of tracking, especially along the tendons were also drained. The wound was packed with Betadine-soaked gauze and we will need to be closed at a later date. POSTOPERATIVE INFORMATION: The patient tolerated the above noted procedure and anesthesia well and was transferred to the PACU with vital signs stable, and vascular status intact with capillary refill intact to all digits. Patient will return to the floor continue IV antibiotics. Patient will be on IV antibiotics for least 4 weeks. Patient will need a wound VAC placed. Patient can be discharged once wound VAC and home health has been in place. Condition Good Disposition Still a Patient FIDENCIO RAINEY DPM Oct 30, 2024 12:54
[2024-10-30] MEDS ORDERED: FLUMAZENIL 0.1 MG/ML INJ 10ML MDV IV PRN (13:00)
[2024-10-30] MEDS ORDERED: ONDANSETRON HCL 4 MG/2 ML VIAL IV PRN (13:00)
[2024-10-30] MEDS ORDERED: ePHEDrine SULFATE 50 MG/ML AMP IV PRN (13:00)
[2024-10-30] MEDS ORDERED: fentaNYL CITRATE 100 MCG/2 ML VL IV PRN (13:00)
[2024-10-30] MEDS ORDERED: hydrALAZINE HCL 20 MG/ML VL IV PRN (13:00)
[2024-10-30] MEDS ORDERED: HYDROmorphone HCL 2 MG/ML VL/or syr IV PRN (13:00)
[2024-10-30] MEDS ORDERED: NALOXONE HCL 0.4 MG/ML VIAL IV PRN (13:00)
--- NOTE | 2024-10-30 13:50 | DVHPN2 ---
Subjective Update 10/30 10/25-patient was status post I&D on left foot where found to have abscess purulent drainage and some necrotic tissue. Podiatry plans to take patient again to OR on 08/30. Patient has pain tolerable with p.o. analgesia. We will continue treatment with antibiotic and podiatry following. 10/26 patient doing well, pain controlled with p.o. p.r.n. meds. Continue to monitor. NPO midnight tomorrow night for procedure with podiatry on Monday10/28/202410/27 - patient was stable, pain is controlled with p.o. analgesia. Tolerating p.o., p.o. NPO midnight. Ambulated twice to bathroom today. Continuing some home medications. 10/28-patient is doing well, he is status post OR again sign. He continues to have pain in left lower extremity at interventions site. Complaining of pain after OR, we will notify nurse. We will continue p.r.n. analgesia and treatment plan 10/29-doing well NPO midnight for OR tomorrow with Podiatry again. Continuing pain control. Pain is tolerable. Current p.r.n. analgesia 10/30 taken to OR today again, 3rd OR visit, with Podiatry. Continuing IV antibiotics. Plan for outpatient antibiotics vancomycin for 4 weeks. We will follow up with the Podiatry outpatient. Likely needs 1 more day of IV antibiotics and postop follow up. Likely discharge tomorrow after podiatry clearance Reviewed: Care Plan, H&P Changes from previous H/P or p: No Changes General: Per HPI Eyes: No Pain, No Vision change, No Conjunctivae inflammation, No Eyelid inflammation, No Other, No Redness ENT: No Ear pain, No Ear discharge, No Nose pain, No Nose discharge, No Nose congestion, No Mouth pain, No Mouth swelling, No Throat pain, No Throat swelling, No Other Gastrointestinal: No Nausea, No Vomiting, No Abdominal Pain, No Diarrhea, No Constipation, No Melena, No Hematochezia, No Other Genitourinary: No Dysuria, No Frequency, No Incontinence, No Hematuria, No Retention, No Other Musculoskeletal: No other, No neck pain, No shoulder pain, No arm pain, No back pain, No hand pain, No leg pain; foot pain Skin: No Rash, No Lesions, No Jaundice, No Bruising, No Other Objective Vitals Vital Signs Date Time Temp Pulse Resp B/P (MAP) Pulse Ox O2 Delivery O2 Flow Rate FiO2 10/30/24 09:25 115/69 10/30/24 09:00 98.6 61 18 96 98.6 10/30/24 07:30 Room Air* 0 21 Intake/Output Intake and Output 10/30/24 07:00 Intake Total 4120 ml Output Total 4550 ml Balance -430 ml Intake Oral 2120 ml IV Total 2000 ml Output Urine Total 4550 ml # Voids 2 Exam GEN: Healthy appearing, well-developed, NAD. HEENT: NC/AT; MMM. CV: RRR, no m/r/g. LUNGS: CTAB, no w/r/c. ABD: Soft, NT/ND, NBS, no masses or organomegaly. EXT: Left foot wrapped in gauze with Betadine staining status post I&D on 10/25 with podiatry. Neurovascularly intact. NEURO: Ambulating with no limitations. No focal deficits. Medications Current Medications Medications Dose Ordered Sig/Karina Route Start Time Stop Time Status Last Admin Dose Admin Vancomycin HCl 0 ml @ 0 mls/hr UD IV 10/24/24 22:15 Sodium Chloride 1,000 ml @ 100 mls/hr Q10H IV 10/24/24 23:15 10/29/24 15:18 100 MLS/HR Acetaminophen 650 mg Q4HP PRN PO 10/25/24 01:45 10/25/24 15:35 650 MG Lisinopril 40 mg DAILY PO 10/25/24 05:00 10/30/24 09:24 40 MG Cefepime HCl 50 ml @ 12.5 mls/hr Q8HR IV 10/25/24 22:00 10/30/24 06:18 12.5 MLS/HR Metronidazole 100 ml @ 100 mls/hr Q8HR IV 10/25/24 22:00 10/30/24 06:10 100 MLS/HR Acetaminophen/ Hydrocodone Bitart 1 tab Q4HP PRN PO 10/25/24 17:45 10/30/24 09:24 1 TAB Hydralazine HCl 15 mg Q6HPRN PRN IV 10/26/24 00:30 10/26/24 00:52 15 MG Insulin Glargine 40 units HS SC 10/27/24 22:00 10/29/24 23:14 40 UNITS Diagnostic Test (Pha) 1 strip Q6HR 10/27/24 12:00 10/30/24 06:18 1 STRIP Insulin Human Regular Q6HR SC 10/27/24 12:00 10/30/24 06:28 8 UNITS Dextrose 50 ml UD PRN IV 10/27/24 09:00 Furosemide 40 mg DAILY PO 10/28/24 10:00 10/30/24 09:25 40 MG Vancomycin HCl 250 ml @ 250 mls/hr Q8H IV 10/28/24 16:00 10/30/24 08:58 250 MLS/HR Ondansetron HCl 4 mg ONCE PRN IV 10/30/24 13:00 10/30/24 13:01 UNV Naloxone HCl 0.4 mg Q10M PRN IV 10/30/24 13:00 10/30/24 13:21 UNV Flumazenil 0.2 mg ONCE PRN IV 10/30/24 13:00 10/30/24 13:01 UNV Hydralazine HCl 5 mg Q10M PRN IV 10/30/24 13:00 10/30/24 13:51 UNV Ephedrine Sulfate 10 mg Q10M PRN IV 10/30/24 13:00 10/30/24 13:41 UNV Fentanyl Citrate 25 mcg Q1HP PRN IV 10/30/24 13:00 10/30/24 13:01 UNV Hydromorphone HCl 0.5 mg Q10M PRN IV 10/30/24 13:00 10/30/24 13:41 UNV Laboratory Results Laboratory Tests 10/30/24 06:16 Chemistry Test 10/30/24 06:16 Albumin 3.0 g/dL (3.2-4.8) L Calcium Level 8.6 mg/dL (8.7-10.4) L Total Protein 5.9 g/dL (5.7-8.2) Coagulation Test 10/30/24 06:16 Prothrombin Time 11.9 sec (9.3-11.8) H Prothrombin Time INR 1.14 (0.9-1.15) Activated Partial Thromboplast Time 29.6 SEC (24.5-34.5) LFT Test 10/30/24 06:16 Alanine Aminotransferase (ALT) 9 U/L (7-40) Alkaline Phosphatase 67 U/L (46-116) Aspartate Amino Transferase (AST) 11 U/L (13-40) L Total Bilirubin 0.3 mg/dL (0.2-1.0) Microbiology Microbiology Date/Time Source Procedure Growth Status 10/25/24 13:30 Foot Left Gram Stain - Final Complete 10/25/24 13:30 Anaerobic Culture - Final Prevotella denticola Complete 10/25/24 13:30 Aerobic Culture - Final Methicillin Resistant S.aureus Complete 10/24/24 23:40 Blood Blood Culture - Final NO GROWTH AFTER 5 DAYS OF INCUBATION. Complete Labs and/or images reviewed: Labs reviewed by me, Image(s) reviewed by me Assessment/Plan Assessment/Plan 10/30 taken to OR today again, 3rd OR visit, with Podiatry. Continuing IV antibiotics. Plan for outpatient antibiotics vancomycin for 4 weeks. We will follow up with the Podiatry outpatient. Likely needs 1 more day of IV antibiotics and postop follow up. Likely discharge tomorrow after podiatry clearance #Left foot cellulitis with abscess and necrotic tissue - SP OR 10/25 and 10/28 and 10/30. #Sepsis due to cellulitis left foot- vancomycin cefepime Flagyl (prior vancomycin and Zosyn) # osteomyelitis ruled out #Diabetic foot infection #Uncontrolled diabetes - Lantus 30 units with meal moderate sliding scale insulin #H/o atrial flutter - s/p ablation #Hypertension -lisinopril home dose Diet diabetic DVT prophylaxis-Lovenox GI prophylaxis tolerating diet Med surge Full code Plan discussed with: Patient My Orders Orders - SHELDON VELASCO MD Procedure Category Date Status Time * Picc Line Consult CONS 10/29/24 Transmitted 16:38 * Staffing Operations Manager CONS 10/30/24 Transmitted Consult 09:05 Date of Service: Oct 30, 2024 Billing Provider: SHELDON VELASCO MD Common Visit Codes: [id number] INP/OBS CARE(HIGH) SHELDON VELASCO MD Oct 30, 2024 13:50
[2024-10-30] MEDS ORDERED: PANTOPRAZOLE 40 MG TAB PO ONE (20:15)
[2024-10-30] MEDS: VANCOMYCIN 1GM/250ML KIT 250 ML IV SCH (21:19)
[2024-10-30] MEDS: metroNIDAZOLE 500MG/100ML 100 ML IV SCH (23:23)
[2024-10-31] MEDS: CEFEPIME 1GM/ 50ML 50 ML IV SCH (00:52)
[2024-10-31 01:00] VITALS: BP 149/64; PULSE 72; RESP 20; TEMP 98.6; O2SAT 96
[2024-10-31 05:00] VITALS: BP 138/60; PULSE 76; RESP 18; TEMP 98.6; O2SAT 96
[2024-10-31 07:03] LABS: Potassium 4.2 mmol/L (3.5-5.1)
[2024-10-31 07:04] LABS: Anion Gap 6 (5-15); Calcium 9.1 mg/dL (8.7-10.4); Carbon Dioxide 29 mmol/L (20-31); Chloride 94 mmol/L (98-107); Sodium 129 mmol/L (136-145)
[2024-10-31 07:09] LABS: BUN/Creatinine Ratio 13.7 (10.0-20.0); Blood Urea Nitrogen 14 mg/dL (9-23); Glucose 341 mg/dL (74-106)
[2024-10-31] MEDS: LIDOCAINE 1% (LOCAL ANESTH.) PF 5ml SDV ID ONE (08:52)
[2024-10-31 09:00] VITALS: BP 146/62; PULSE 53; RESP 16; TEMP 97.5; O2SAT 96
[2024-10-31] MEDS ORDERED: hydrALAZINE HCL 20 MG/ML VL IV PRN (09:00)
[2024-10-31] MEDS: SODIUM CHLOR 0.9% PF (SALINE LOCK) 10ML VIAL/SYR IV SCH (09:30)
[2024-10-31 15:04] VITALS: BP 146/62; TEMP 36.4
--- NOTE | 2024-10-31 15:30 | DVHDS2 ---
Discharge Summary Date of Admission Oct 24, 2024 at 22:03 Date of Discharge: Oct 31, 2024 Labs/Diagnostic Data: Laboratory Results Test 10/31/24 05:24 10/30/24 23:37 10/30/24 15:02 10/30/24 06:16 Sodium Level 129 mmol/L (136-145) Potassium Level 4.2 mmol/L (3.5-5.1) Chloride Level 94 mmol/L (98-107) Carbon Dioxide Level 29 mmol/L (20-31) Anion Gap 6 (5-15) Blood Urea Nitrogen 14 mg/dL (9-23) Creatinine 1.02 mg/dL (0.700-1.30) Glomerular Filtration Rate Calc 84 mL/min (>90) BUN/Creatinine Ratio 13.7 (10.0-20.0) Serum Glucose 341 mg/dL (74-106) Calcium Level 9.1 mg/dL (8.7-10.4) POC Glucose 471 mg/dl (70-106) Vancomycin Level Trough 20.2 ug/mL (5-10) White Blood Count 11.6 10^3/uL (4.4-10.8) Red Blood Count 3.19 10^6/uL (4.5-5.90) Hemoglobin 10.7 g/dL (13.5-17.5) Hematocrit 31.5 % (41.0-53.0) Mean Corpuscular Volume 98.6 fL (80.0-100.0) Mean Corpuscular Hemoglobin 33.7 pg (28.0-32.0) Mean Corpuscular Hemoglobin Concent 34.1 g/dL (32.0-36.0) Red Cell Distribution Width 13.7 % (11.8-14.3) Platelet Count 517 10^3/uL (140-450) Mean Platelet Volume 8.7 fL (6.9-10.8) Neutrophils (%) (Auto) 71.8 % (37.0-80.0) Lymphocytes (%) (Auto) 14.0 % (10.0-50.0) Monocytes (%) (Auto) 10.0 % (0.0-12.0) Eosinophils (%) (Auto) 2.8 % (0.0-7.0) Basophils (%) (Auto) 1.4 % (0.0-2.0) Neutrophils # (Auto) 8.3 10 ^3/uL (1.6-8.6) Lymphocytes # (Auto) 1.6 10 ^3/uL (0.4-5.4) Monocytes # (Auto) 1.2 10 ^3/uL (0-1.3) Eosinophils # (Auto) 0.3 10 ^3/uL (0-0.8) Basophils # (Auto) 0.2 10 ^3/uL (0-0.2) Nucleated Red Blood Cells 0.0 % Prothrombin Time 11.9 sec (9.3-11.8) Prothrombin Time INR 1.14 (0.9-1.15) Activated Partial Thromboplast Time 29.6 SEC (24.5-34.5) Total Bilirubin 0.3 mg/dL (0.2-1.0) Aspartate Amino Transferase (AST) 11 U/L (13-40) Alanine Aminotransferase (ALT) 9 U/L (7-40) Alkaline Phosphatase 67 U/L (46-116) Total Protein 5.9 g/dL (5.7-8.2) Albumin 3.0 g/dL (3.2-4.8) Test 10/28/24 05:04 10/27/24 07:45 10/24/24 23:15 10/24/24 13:25 Erythrocyte Sedimentation Rate 96 mm/hr (0-20) C-Reactive Protein High Sensitivity 6.67 mg/dL (<1.0) Platelet Estimate Decreased Lactic Acid Level 1.7 mmol/L (0.4-2.0) Differential Total Cells Counted 100.0 (100) Neutrophils % (Manual) 78 (37.0-80.0) Band Neutrophils % (Manual) 12 Lymphocytes % (Manual) 9 (10.0-50.0) Monocytes % (Manual) 0 (0-12) Eosinophils % (Manual) 1 (0-7) Basophils % (Manual) 0 (0.0-2.0) Metamyelocytes % (manual) 0 Myelocytes % (Manual) 0 Promyelocytes % (Manual) 0 Blast Cells % (Manual) 0 Reactive Lymphocytes 0 Hemoglobin A1c 12.4 % A1C (<5.7) Other Laboratory Tests 10/31/24 05:24 10/30/24 06:16 Brief Hx & Hospital Course: HPI: 59-year-old male presents with an open wound on the medial arch of his left foot. He reports that symptoms began on 09/20/24 when he noticed a scab with pus while taking a shower. The following day, he was evaluated and cleared for close monitoring by marker assembler Dr Preciado. However, today, he reports worsening of the wound, prompting him to consult Dr. Preciado, who advised him to seek care in the ED. He denies fever, chills, nausea, vomiting, or other associated symptoms. Summary: Patient with worsening wound and was falling Podiatry outpatient. And Podiatry outpatient appointment found to have worsening left foot wound and was sent to ED for admission. On vitals patient has low-grade temperatures up to 100.8, tachycardic, hypertensive launch 50s over 80s, respiratory rate up to 21.. Lab workup shows leukocytosis 20.9 with neutrophilia . Serum glucose high in 200s, hyponatremia due to hyperglycemia. CT left foot without contrast findings diffuse soft tissue edema, soft tissue ulcer along medial hindfoot, no subcutaneous emphysema or fluid collections. Left lower extremity duplex arterial ultrasound shows 20-49% stenosis of left dorsalis pedis artery, peripheral vascular disease of left posterior tibial artery/left dorsalis pedis artery/anterior tibial artery. Left foot MRI shows large soft tissue defect in medial-plantar aspect of the hindfoot/midfoot with underlying myositis but no drainable fluid collection and no evidence of osteomyelitis. Patient admitted for left foot infection and started on broad-spectrum IV antibiotics , initially vanc Zosyn, then vanc/cefepime/Flagyl. Patient was taken to the OR 3 times, 10/25, 10/28, 10/30. Patient continues to improve with antibiotics and surgical intervention. Taken intraoperative cultures which show growth of MRSA sensitive to vancomycin. Patient vanc trough is stable, plan to discharge patient with IV antibiotics through PICC line. Patient lost sinus stable, labs stable. Stable for discharge as per plan below. Diagnosis: Left foot infection with narcotizing fascitis/gangrene with associated abscess, and cellulitis left foot infection, gram + cocci, MRSA Sepsis due to above osteomyelitis ruled out foot infection due to diabetes Uncontrolled diabetes mellitus H/o atrial flutter s/p ablation Hypertension Discharge plan: - Continue IV antibiotics vancomycin via PICC line 3 times daily, incisions to be given by home health. IV antibiotics will be given for 4 weeks. - Continue other home meds - home health we will maintain wound care and wound VAC management - Follow up with Podiatry - Follow up with PCP for discharge review Condition at Discharge: Fair Final Diagnosis/Problems List Left foot infection with narcotizing fascitis/gangrene with associated abscess, and cellulitis left foot infection, gram + cocci, MRSA Sepsis due to above osteomyelitis ruled out foot infection due to diabetes Uncontrolled diabetes mellitus H/o atrial flutter s/p ablation Hypertension Discharge Disposition: Home with Health Services Discharge Instruct/Medications Diet: Consistent carbohydrate Activity: No Restrictions, As Tolerated Follow Up/Referral: PCP, Podiatry Medications: As below Discharge Statement: "Patient was advised to return to the ER or call 911 if any headaches, dizziness, shortness of breath, chest pain, abdominal pain, bleeding, fevers, or worsening of medical condition. Patient was counseled about treatment plan, medications, possible side effects, patientverbalized understanding. All questions were answered to the best of my ability. This discharge took greater then 30 minutes in planning, reviewing documentation, counseling the patient, and discussing with other team members." Date of Service: Oct 31, 2024 Billing Provider: SHELDON VELASCO MD Common Visit Codes: [id number] DISCH DAY >30min SHELDON VELASCO MD Oct 31, 2024 15:30
[2024-10-31] MEDS ORDERED: KETAMINE 50mg/ML 1ml syringe IM ONE (15:54)
== END 2024-10-31 15:55 | disposition home health service (06) | DRG 720 ==
LOC: ER 12:21 → OVERFLOW 22:03 → WEST WING 22:10
PROVIDERS: ADMIT Student in an Organized Health Care Education/Training Program; ATTEND Student in an Organized Health Care Education/Training Program
PROC: 0Y9N0ZZ Drainage of Left Foot, Open Approach (ICD-10-PCS; principal; 2024-10-25 13:10)
PROC: 0Y9N0ZZ Drainage of Left Foot, Open Approach (ICD-10-PCS; 2024-10-28)
PROC: 0Y9N0ZZ Drainage of Left Foot, Open Approach (ICD-10-PCS; 2024-10-30)
PROC: 02HV33Z Insertion of Infusion Device into Superior Vena Cava, Percutaneous Approach (ICD-10-PCS; 2024-10-31)
PROC: B548ZZA Ultrasonography of Superior Vena Cava, Guidance (ICD-10-PCS; 2024-10-31)
DX: A41.02 Sepsis due to Methicillin resistant Staphylococcus aureus (principal); M72.6 Necrotizing fasciitis; E11.52 Type 2 diabetes mellitus with diabetic peripheral angiopathy with gangrene; A48.0 Gas gangrene; E11.40 Type 2 diabetes mellitus with diabetic neuropathy, unspecified; E87.1 Hypo-osmolality and hyponatremia; I48.92 Unspecified atrial flutter; L02.612 Cutaneous abscess of left foot; L03.116 Cellulitis of left lower limb; E11.65 Type 2 diabetes mellitus with hyperglycemia; I10 Essential (primary) hypertension; J45.909 Unspecified asthma, uncomplicated; F32.A Depression, unspecified; F41.9 Anxiety disorder, unspecified; Z79.899 Other long term (current) drug therapy; Z79.1 Long term (current) use of non-steroidal anti-inflammatories (NSAID); Z79.2 Long term (current) use of antibiotics
CPT/HCPCS: 36415; 36569; 71045; 73700; 73718; 76937; 80048; 80053; 80202; 82565; 82962; 83036; 83605; 85007; 85025; 85027; 85610; 85652; 85730; 86141; 86850; 86900; 86901; 87040; 87070; 87075; 87076; 87077; 87186; 87205; 93306; 93926; 96365; G0378; J1100; J1815; J1885; J2250; J2405; J2543; J2704; J3490